=== PATIENT | female | born 1950 | race Caucasian/White ===

== ENCOUNTER 2022-12-29 07:50 | Emergency (ER) | payer MEDICARE, SELFPAY ==
[2022-12-29 07:57] VITALS: BP 149/77; PULSE 96; RESP 20; TEMP 36.4; O2SAT 97; BMI 32.3
--- NOTE | 2022-12-29 08:20 | ED.WOUNDLAC1 ---
HPI - Wound/Laceration General Chief Complaint: Wound/Laceration Stated Complaint: LEG IS BLEEDING Time Seen by Provider: 12/29/22 08:03 History of Present Illness HPI narrative: the patient scratched a scab on her right lower leg last night and the leg began to bleed. She applied a bandage and it seemed to stop but when she removed the bandage a couple of hours later, the scab came off again and bleeding resumed. They applied another bandage and came to the ED for evaluation. the patient takes aspirin daily. Related Data Home Medications Medication Instructions Recorded Confirmed aspirin 81 mg tablet,delayed 81 mg PO DAILY 12/29/22 12/29/22 release (Adult Low Dose Aspirin) empagliflozin 25 mg tablet 25 mg PO DAILY 12/29/22 12/29/22 (Jardiance) lisinopril 20 1 tab PO .every day 12/29/22 12/29/22 mg-hydrochlorothiazide 12.5 mg tablet semaglutide 1 mg/dose (4 mg/3 mL) 1 mg subcut .weekly 12/29/22 12/29/22 subcutaneous pen injector (Ozempic) simvastatin 40 mg tablet 40 mg PO DAILY 12/29/22 12/29/22 Allergies Allergy/AdvReac Type Severity Reaction Status Date / Time oxycodone Allergy Severe Verified 12/29/22 08:02 Penicillins Allergy Severe Rash Verified 12/29/22 08:01 codeine AdvReac Severe Confusion Verified 12/29/22 08:02 [facility] Social History Smoking status: Never smoker Exam Narrative Exam Narrative: Nurses notes and vital signs reviewed and patient is not hypoxic. afebrile General: Well-appearing and in no apparent distress. Skin: Warm, dry, no pallor noted. No rash. Cardiovascular: normal peripheral perfusion. Respiratory: No accessory muscle use or respiratory distress. Musculoskeletal: right lower leg with 3mm area of prior scab overlying spider veins and varicose veins. No active bleeding. Right LE with normal ROM, no calf or popliteal tenderness, no lower extremity edema/swelling Neurological: A&O x4. No truncal ataxia. Moves all extremities. Sensation intact. Psychiatric: Cooperative and interactive. Normal mood and affect. Constitutional Vital Signs, click to edit/add: Last Vital Signs Temp 97.6 F 12/29/22 07:57 Pulse 96 H 12/29/22 07:57 Resp 20 12/29/22 07:57 BP 149/77 H 12/29/22 07:57 Pulse Ox 97 12/29/22 07:57 O2 Del Method Room Air 12/29/22 07:57 Course Vital Signs Vital signs: Vital Signs Temperature 97.6 F 12/29/22 07:57 Pulse Rate 96 H 12/29/22 07:57 Respiratory Rate 20 12/29/22 07:57 Blood Pressure 149/77 H 12/29/22 07:57 Pulse Oximetry 97 12/29/22 07:57 Oxygen Delivery Method Room Air 12/29/22 07:57 Temperature 97.6 F 12/29/22 07:57 Pulse Rate 96 H 12/29/22 07:57 Respiratory Rate 20 12/29/22 07:57 Blood Pressure 149/77 H 12/29/22 07:57 Pulse Oximetry 97 12/29/22 07:57 Oxygen Delivery Method Room Air 12/29/22 07:57 MDM - Wound/Laceration MDM Narrative Medical decision making narrative: I removed the bandage and the bleeding was controlled. I cleaned the area and then applied xeroform gauze to the area of prior scab. I then covered with a dry sterile bandage. I talked to the patient and her about how to treat bleeding wounds - elevate the extremity, apply a bandage and then apply pressure to the area. I told the patient to keep the bandage in place until it starts to fall off on its own. I gave them the remainder of the xeroform and taught them how to apply it to the wound if the bleedinf recurs when the bandage comes off. Discharge Plan Discharge Chief Complaint: Wound/Laceration Clinical Impression: Abrasion Patient Disposition: Home, Self-Care Time of Disposition Decision: 08:25 Prescriptions / Home Meds: No Action Jardiance 25 mg tablet 25 mg PO DAILY lisinopril-hydrochlorothiazide 20-12.5 mg tablet 1 tab PO .every day Ozempic 1 mg/dose (4 mg/3 mL) pen injector 1 mg SUBCUT .weekly simvastatin 40 mg tablet 40 mg PO DAILY aspirin [Adult Low Dose Aspirin] 81 mg tablet,delayed release (DR/EC) 81 mg PO DAILY Instructions: Abrasion (ED) Stand Alone Forms: Portal Instructions
== END 2022-12-29 08:50 | disposition home or self-care (01) ==
PROVIDERS: Emergency Provider Emergency Medicine; PCP Family Medicine
DX: S80.811A Abrasion, right lower leg, initial encounter (principal); Z79.82 Long term (current) use of aspirin; X58.XXXA Exposure to other specified factors, initial encounter; Z79.899 Other long term (current) drug therapy
CPT/HCPCS: 99282

== ENCOUNTER 2023-02-14 13:16 | Outpatient (OUT) | payer MEDICARE, SELFPAY ==
--- NOTE | 2023-02-14 13:24 | MM_ITS ---
Patient: TAMARA JOHNSON Exam Date: 02/14/2023 : 1950 Gender:F Ordering : DR ALPHONSO BUSCH Admission #: [id number] Family : Order #: [id number] CLICK HERE TO VIEW EXAM RADIOLOGY REPORT PROCEDURE: MM TOMOSYNTHESIS SCREENING BI COMPARISON: MG MAMM SCREEN 3D CANDI CAD, 10/27/2020. MG MAMM SCREEN 3D CANDI CAD, 12/11/2021. INDICATIONS: Calculator Name NCI Breast Cancer Risk Assessment Tool 5 Year Breast Cancer Risk 3.80% Lifetime Breast Cancer Risk 10.90% Personal Breast Cancer No Personal Ovarian Cancer No Treatments None Family Cancers Mother with breast cancer at age 75. LOCATION: [facility] BREAST COMPOSITION: Scattered areas fibroglandular density. FINDINGS: DIAGNOSTIC CATEGORY 2--BENIGN FINDING. NO CHANGE FROM COMPARISON. Scattered benign-appearing nodules are present. Scattered benign-appearing calcifications are present. Scattered benign-appearing lymph nodes are present. RIGHT BREAST: No significant suspicious finding. LEFT BREAST: No significant suspicious finding. RECOMMENDATIONS: ROUTINE MAMMOGRAM AND CLINICAL EVALUATION IN 12 MONTHS. PLEASE NOTE: A NORMAL MAMMOGRAM DOES NOT EXCLUDE THE POSSIBILITY OF BREAST CANCER. A CLINICALLY SUSPICIOUS PALPABLE LUMP SHOULD BE BIOPSIED. Dictated by: Cecilio Ndiaye MD on 02/17/2023 at 09:42 Approved by: Cecilio Ndiaye MD on 02/17/2023 at 09:44
== END 2023-02-14 13:17 | disposition home or self-care (01) ==
LOC: MAMMO 13:16
PROVIDERS: PCP Family Medicine; Visit Provider Nurse Practitioner Family
DX: Z12.31 Encounter for screening mammogram for malignant neoplasm of breast (principal); Z80.3 Family history of malignant neoplasm of breast
CPT/HCPCS: 77063; 77067

== ENCOUNTER 2024-02-27 09:42 | Outpatient (OUT) | payer MEDICARE, SELFPAY ==
[2024-02-27 10:19] LABS: Estimated Average Glucose 157 mg/dL; Glycohemoglobin A1C 7.1 % (4.5-6.2)
== END 2024-02-27 09:43 | disposition home or self-care (01) ==
LOC: LAB 09:42
PROVIDERS: PCP Nurse Practitioner Family; Visit Provider Nurse Practitioner Family
DX: E11.9 Type 2 diabetes mellitus without complications (principal)
CPT/HCPCS: 36415; 83036

== ENCOUNTER 2024-09-23 09:21 | Outpatient (OUT) | payer MEDICARE, SELFPAY ==
[2024-09-23 09:53] LABS: Basophils Percent Auto 0.7 % (0.2-2.0); Eosinophils Absolute Auto 0.1 10^3/uL (0.0-0.7); Eosinophils Percent Auto 2.2 % (0.9-7.0); Hematocrit 41.6 % (36.0-48.0); Hemoglobin 13.4 g/dL (12.0-16.0); Immature Granulocytes Abs Auto 0.01 10^3/uL (0.00-0.03); Immature Granulocytes Pct Auto 0.2 % (0.0-0.5); Lymphocytes Absolute Auto 1.4 10^3/uL (1.2-3.8); Lymphocytes Percent Auto 35.2 % (20.5-60.0); Mean Corpuscular HGB Conc 32.2 g/dL (29.9-35.2); Mean Corpuscular Hemoglobin 29.8 pg (26.7-34.0); Mean Corpuscular Volume 92.4 fL (81.0-99.0); Mean Platelet Volume 9.8 fL (9.5-13.5); Monocytes Absolute Auto 0.4 10^3/uL (0.3-0.8); Monocytes Percent Auto 9.9 % (1.7-12.0); Neutrophils Absolute Auto 2.1 10^3/uL (1.4-6.5); Neutrophils Percent Auto 51.8 % (43.0-75.0); Platelet Count 228 10^3/uL (150-450); Red Cell Distribution Width 12.9 % (11.0-15.0); White Blood Count 4.1 10^3/uL (4.0-11.0)
[2024-09-23 10:32] LABS: Alanine Aminotransferase 22 U/L (14-59); Albumin Level 3.5 g/dL (3.4-5.0); Alkaline Phosphatase 78 U/L (46-116); Aspartate Amino Transferase 13 U/L (15-37); BUN Creatinine Ratio 26.6; Bilirubin Total 0.5 mg/dL (0.2-1.0); Calcium 9.3 mg/dL (8.5-10.1); Chloride 102 mmol/L (98-107); Chol HDL Ratio 2.8; Cholesterol 169 mg/dL (<=200); Estimated GFR (African America 44 (>=60 mL/min/1.73m^2); Estimated GFR (Non-African Ame 36 (>=60 mL/min/1.73m^2); Free T3 3.05 pg/mL (2.18-3.98); Globulin 3.6 g/dL; Glucose 157 mg/dL (74-106); HDL Cholesterol 61 mg/dL (40-60); Sodium 139 mmol/L (136-145); Thyroid Stimulating Hormone 0.921 uIU/mL (0.358-3.740); Total Protein 7.1 g/dL (6.4-8.2); Triglycerides 150 mg/dL (<=150)
[2024-09-23 11:05] LABS: Estimated Average Glucose 183 mg/dL
[2024-09-24 08:08] LABS: Insulin 21.4 uIU/mL (2.6-24.9)
== END 2024-09-23 09:22 | disposition home or self-care (01) ==
PROVIDERS: PCP Nurse Practitioner Family; Visit Provider Nurse Practitioner Family
DX: E55.9 Vitamin D deficiency, unspecified (principal)
CPT/HCPCS: 36415; 80053; 80061; 82306; 83036; 83525; 83540; 84436; 84443; 84481; 85025

== ENCOUNTER 2025-03-24 08:12 | Outpatient (OUT) | payer MEDICARE, SELFPAY ==
--- OUTSIDE RECORDS SUMMARY | 2025-03-24 08:23 | XMS_ITS | CCD ---
Author Organization [facility] Inform ion Partnership [facility] [facility] Care Team Providers Care Wire Welder Name Role Phone ROZINA, DR LUIS ARMANDO Sims Attending Unavailable ROZINA, DR LUIS ARMANDO Sims Consulting Unavailable ROZINA, DR LUIS ARMANDO Sims Primary Care Unavailable ROZINA, DR LUIS ARMANDO Sims Admitting Unavailable ZIEBER, DR MICHAEL Meek Consulting Unavailable MONALISA BELLAMY Attending Unavailable LUIS ARMANDO HANDY Referring Unavailable LUIS ARMANDO HANDY Primary Care Unavailable MONALISA BELLAMY Referring Unavailable LUIS ARMANDO HANDY Primary Care Unavailable Corky HENDERSON, Makenna Unavailable JR. SIMONS GEORGE C Attending Unavaila ble JR. SIMONS GEORGE C Referring Unavaila ble Unavailable Primary Care Provider Unavailabl e Luis Armando Handy DO Primary Care Provider Allergies Allergy ClassificationReported Allergen(s)Allergy TypeDate of OnsetReaction(s) Facility (1 source)Acetaminophen / oxyCODONEDrug Igbwjvc78-97-2489Htk [facility] Repository (3 sources)Codeine; Translations: [CODEINE]Drug Nnsmnkz54-84-9674ZeiPaulding County Hospital Repository (3 sources)Penicillins; Translations: [PENICILLINS]Drug allergy (disorder) 63-82-2121Ekp [facility] Repository (19 sources)Acetaminophen / oxyCODONE; Translations: [OXYCODONE-ACETAMINOPHEN] Drug Dbekhjk95-25-9075AqsNhnvob Repository (17 sources)CodeineDrug Xdttvly41-74-7228EgsHyqoui Health System (3 sources)Insulin Glargine / LixisenatideDrug Cwzigeh65-08-8941[facility] (3 sources)PenicillinsPropensity to adverse mhadipari66-78-2261MshspLWMT Healthcare (14 sources)PenicillinsPropensity to adverse reactions to pmht01-23-6047 [facility] Medications Current Medications MedicationDrug Class(es)DatesSig (Normalized)Sig (Original)Ascorbic Acid (17 sources)Vitamin Ctake 1 tablet by mouth in the morningascorbic acid (VITAMIN C) 500 mg tablet Take 1 tablet (500 mg total) by mouth in the morning. Active Ascorbic Acid (VITAMIN C PO) Take by mouth Activeaspirin 81 mg delayed release oral tablet (3 sources)Platelet Aggregation Inhibitor, Nonsteroidal Anti-inflammatory Drug aspirin 81 MG EC tablet 1 (one) time each day at the same time ActiveCalcium Citrate (3 sources)Calcium Citrate (CITRACAL PO) Take by mouth Activecholecalciferol 0.125 mg oral capsule (17 sources)Vitamin Dcholecalciferol (D3 5000) 125 MCG (5000 UT) capsule Take by mouth Activetake 1 tablet by mouth in the morningcholecalciferol, vitamin D3, 400 units tablet Take 1 tablet (400 Units total) by mouth in the morning. Active chondroitin sulfates 400 mg / glucosamine hydrochloride 500 mg oral tablet (14 sources)take 1 tablet by mouth three times dailyglucosamine-chondroitin 500- 400 mg tablet Take 1 tablet by mouth 3 (three) times a day. Activeclindamycin 300 mg oral capsule (14 sources)Lincosamide AntibacterialStart: 90-81-7464fqzk 4 capsules by mouth every hourclindamycin (CLEOCIN) 300 mg capsule TAKE 4 CAPSULES BY MOUTH 1 HOUR PRIOR TO APPOINTMENT 06/21/2022 Activeempagliflozin 25 mg oral tablet (16 sources)Sodium-Glucose Cotransporter 2 InhibitorStart: 03-22-2023 End: 22-80-3637imdc 1 tablet by mouth once daily in the morningempagliflozin (JARDIANCE) 25 mg tablet tablet Indications: Type 2 diabetes mellitus with diabetic chronic kidney disease ([facility]) Take 1 tablet (25 mg total) by mouth every morning. 90 tablet 03/19/2024 03/19/2024 Discontinued (Patient Transfer) hydroCHLOROthiazide 12.5 mg / lisinopril 20 mg oral tablet (20 sources)Thiazide Diuretic, Angiotensin Converting Enzyme InhibitorStart: 06-07-2024 End: 36-40-1715iguz 1 tablet by mouth once daily in the morninglisinopril- hydroCHLOROthiazide (PRINZIDE,ZESTORETIC) 20-12.5 mg per tablet Indications: Essential (primary) hypertension TAKE 1 TABLET BY MOUTH EVERY DAY IN THE MORNING 90 tablet 06/07/2024 06/07/2024 Discontinued (Patient Transfer)Start: 32-41-6555tatd 1 tablet by mouth in the morninglisinopril-hydroCHLOROthiazide 20-12.5 MG tablet Take 1 tablet by mouth in the morning. 12/05/2023 ActiveStart: 12-05-2023 End: 59-96-6801cpcb 1 tablet by mouth once in the morninglisinopril- hydroCHLOROthiazide (PRINZIDE,ZESTORETIC) 20-12.5 mg per tablet Indications: Essential (primary) hypertension Take 1 tablet by mouth in the morning. 90 tablet 1 12/05/2023 06/07/2024 DiscontinuedStart: 12-11-2022 End: 64-53-2971tvph 1 tablet by mouth once dailylisinopril-hydroCHLOROthiazide (PRINZIDE,ZESTORETIC) 20-12.5 mg per tablet Indications: Essential (primary) hypertension TAKE 1 TABLET BY MOUTH EVERY DAY 90 tablet 1 06/12/2023 Active insulin glargine 100 unt/ml injectable solution (14 sources)Insulin AnalogStart: 85-58-0731xioiiy 0.1 mL by subcutaneous injection once dailyinsulin glargine (LANTUS U-100 INSULIN) 100 unit/mL injection Inject 0.1 mL (10 Units total) under the skin Daily at 0300. 10 mL 3 08/06/2023 ActiveStart: 78-84-1795bernwu 10 [IU] by subcutaneous injection once dailyinsulin glargine U-300 conc (TOUJEO MAX U-300 SOLOSTAR) 300 unit/mL (3 mL) insulin pen Inject 10 Units under the skin Daily at 0300. 9 mL 1 08/05/2023 ActiveStart: 01-26-2023 End: 84-10-1163xqnlyr 10 [IU] by subcutaneous injection in the morninginsulin glargine 300 unit/mL (TOUJEO SOLOSTAR U-300 INSULIN) 300 unit/mL (1.5 mL) insulin pen Inject 10 Units under the skin in the morning. 4.5 mL 12 01/26/2023 08/05/2023 Discontinued (Patient Never Started This Medication) methylsulfonylmethane (3 sources)Methylsulfonylmethane (MSM PO) Take by mouth Active pckmbwdm-swjv-AC-calcium &mins (THERAGRAN-M) 9 mg iron-400 mcg tablet (14 sources)dzmwzyil-uxrc-MB-calcium &mins (THERAGRAN-M) 9 mg iron-400 mcg tablet Take 1 tablet by mouth inthe morning. Guuuznliqhiyvy-xggy-AV-calcium &mins (THERAGRAN-M) 9 mg iron-400 mcg tablet Take 1 tablet by mouth inthe morning. 0 ActiveOzempic, 2 MG/DOSE, 8 MG/3ML solution pen-injector (3 sources)Start: 90-56-4671Chtkfuy, 2 MG/DOSE, 8 MG/3ML solution pen-injector Inject 2 mg under the skin every 7 (seven) days 08/05/2023 Activesemaglutide (OZEMPIC) 2 mg/dose (8 mg/3 mL) pen injector (16 sources)Start: 28-41-7222kptctg 2 mg by subcutaneous injection every week semaglutide (OZEMPIC) 2 mg/dose (8 mg/3 mL) pen injector Indications: Type 2 diabetes mellitus withother diabetic kidney complication, without long-term current use of insulin ([facility]) Inject 2 mg under the skin once a week. 9 mL 3 08/05/2023 ActiveStart: 07-28-2023 End: 44-15-4923nwcmtcnhvvx (OZEMPIC) 2 mg/dose (8 mg/3 mL) pen injector INJECT 2 MG SUBCUTANEOUSLY EVERY 7 DAYS 3 mL 0 07/28/2023 08/05/2023 Discontinued (Reorder)Start: 53-67-0788hocoymxrzcb (OZEMPIC) 2 mg/dose (8 mg/3 mL) pen injector INJECT 2 MG SUBCUTANEOUSLY EVERY 7 DAYS 3 mL 0 07/28/2023 ActiveStart: 04-27-2023 End: 32-79-4218qjvnuiooaoq (OZEMPIC) 2 mg/dose (8 mg/3 mL) pen injector INJECT 2 MG SUBCUTANEOUSLY EVERY 7 DAYS 3 mL 2 04/27/2023 07/28/2023 DiscontinuedStart: 68-54-3029yjfnertzvls (OZEMPIC) 2 mg/dose (8 mg/3 mL) pen injector INJECT 2 MG SUBCUTANEOUSLY EVERY 7 DAYS 3 mL 2 04/27/2023 Activesimvastatin 40 mg oral tablet (20 sources)HMG-CoA Reductase InhibitorStart: 01-17-2023 End: 77-86-3012lpdu 1 tablet by mouth at bedtimesimvastatin (Zocor) 40 MG tablet Take 40 mg by mouth at bedtime 01/08/2024 Activeubidecarenone 50 mg oral capsule (14 sources)take 1 capsule by mouth once in the morningcoenzyme Q10 50 mg capsule Take 1 capsule (50 mg total) by mouth in the morning. Active Completed/Discontinued Medications MedicationDrug Class(es)DatesSig (Normalized)Sig (Original)ferrous sulfate 325 mg oral tablet (4 sources) End: 77-52-9913pbob 1 tablet by mouth once daily at breakfastferrous sulfate 325 (65 FE) mg tablet Take 1 tablet (325 mg total) by mouth daily with breakfast. 0 08/05/2023 Discontinued (Therapy completed) Problems Active Problems Problem ClassificationProblemDateDocumented DateEpisodic/ChronicChronic kidney disease (12 sources)Chronic kidney disease stage 3A ; Translations: [Stage 3a chronic kidney disease]Onset: 397999-38-2425WqoblhbZtnsoji kidney disease (2 sources)Chronic kidney disease; Translations: [Chronic kidney disease, stage 3a]Onset: 62-64-7454Eericdlz mellitus with complications (20 sources)Type 2 diabetes mellitus with other diabetic kidney complication; Translations: [Renal disorder dueto type 2 diabetes mellitus]Onset: 07-24-2022 77-65-0090XqsjydhFifvzrid mellitus without complication (1 source)Diabetes mellitusOnset: 96-82-5018SrnbzrzDfvbfilga of lipid metabolism (17 sources)Mixed hyperlipidemia; Translations: [Mixed hyperlipidemia]Onset: 259586-85-0167DudueycBqekcjebm hypertension (17 sources)Essential hypertension; Translations: [Essential (primary) hypertension]Onset: 740748-75-5603WztjuqtBqnow connective tissue disease (2 sources)History of total replacement of bilateral hip joints; Translations: [Presence of artificial hip joint, bilateral]47-38-0398LrplczcPopxi nutritional; endocrine; and metabolic disorders (1 source)Other obesity due to excess calories; Translations: [Other obesity due to excess calories]Onset: 56-05-5166MjzqcejIsbac nutritional; endocrine; and metabolic disorders (1 source)Body mass index (BMI) 31.0-31.9, adult; Translations: [Body mass index (BMI) 31.0-31.9, adult]Onset: 39-09-1243DentrcyPbkrd nutritional; endocrine; and metabolic disorders (1 source)Obesity caused by energy imbalance; Translations: [Other obesity due to excess calories]22-59-3933GlsdzrlFwodi screening for suspected conditions (not mental disorders or infectious disease) (4 sources)Encounter for screening mammogram for malignant neoplasm of breast; Translations: [ENC SCR MAMMO MALIG NEOPLASM BREAST]Onset: 78-44-7094Tzhcponf Peripheral and visceral atherosclerosis (13 sources)Peripheral vascular disease, unspecified; Translations: [Peripheral vascular disease]Onset: 943522-83-1984AawglujKiqvhpdx codes; unclassified (1 source)Family history of malignant neoplasm of breast; Translations: [FAMILY HX MALIG NEOPLASM OF BREAST]Onset: 77-98-1530Jwddaenf Past or Other Problems Problem ClassificationProblemDateDocumented DateEpisodic/ChronicMood disorders (14 sources)Mood disordersOnset: 01-24-2023 Resolved: 337178-12-5883Tbrzd non-traumatic joint disorders (18 sources)Hip pain; Translations: [Pain in left hip]Onset: 01-12-2018 50-25-4444EfhuchyrCvxmpmalrslj (11 sources)Onset: 381321-17-2654 Results Test NameValueInterpretationReference RangeFacilityNo Panel Informationon 23-62-4526Xprdnbrjg Study observation (narrative)[facility] Hip - left 3 Viewson 57-73-1986Yrsevsm Result: AP and lateral of left hip showed acceptable position and alignment of left total hip arthroplasty. There was no evidence of loosening of the acetabular cup or femoral stem. Femoral head was well centered in the acetabular liner without evidence of asymmetric or accelerated wear. There was no gross evidence of fracture and/or dislocation. Impression: Unremarkable left total hip arthroplasty. [facility] Viewson 27-21-0698Vwdlplw Result: AP and lateral of right hip showed acceptable position and alignment of right total hip arthroplasty. There was no evidence of loosening of the acetabular cup or femoral stem. Femoral head was well centered in the acetabular liner without evidence of asymmetric or accelerated wear. There was no gross evidence of fracture and/or dislocation. Impression: Unremarkable right total hip arthroplasty. [facility] AND AUTO DIFFon 03-57-7671IECETGND BASOPHIL0.0 X10E9/LNormal0.0-0.2ProMedKettering Health Washington TownshipComment on above:Performed By: #### VIRI, SURINDER, 51941-3, 58054-9, 2777-1, 3084-1, 3016-3, 2731-8, 51444-8 #### [facility] ([id number]) [address], [address] [place], [place] [address]QORDBOMO NEUTROPHIL4.3 X10E9/LNormal1.5-6.6ProWooster Community HospitalComment on above:Performed By: #### TAMMYA, CMP, 49621-8, 10665-7, 2777-1, 3084-1, 3016-3, 2731-8, 13037-1 #### [facility] ([id number]) [address], [address] [place], [place] [address]Gzaaxlwtv/100 WBC (Bld)0.5 %NormalProWooster Community Hospital Comment on above:Performed By: #### CBCA, CMP, 47341-2, 99911-2, 2777-1, 3084-1, 3016-3, 2731-8, 14159-9 #### [facility] ([id number]) [address], [address] [place], [place] [address]Depyqagljkk (Bld) [#/Vol]0.1 10*3/uLNormal0.0-0.4ProWooster Community HospitalComment on above:Performed By: #### CBCA, CMP, 86549-6, 42229-6, 2777-1, 3084-1, 3016-3, 2731-8, 56166-5 #### [facility] ([id number]) [address], [address] [place], [place] [address]Urwatydzdhp/100 WBC (Bld)1.9 %NormalProWooster Community Hospital Comment on above:Performed By: #### CBCA, CMP, 97606-8, 54837-8, 2777-1, 3084-1, 3016-3, 2731-8, 53459-9 #### [facility] ([id number]) [address], [address] [place], [place] [address]Svtjkdyyazg distribution width (RBC) [Ratio]14.9 %Normal 11.5-15.0ProWooster Community HospitalComment on above:Performed By: #### CBCA, CMP, 56444-7, 02451-2, 2777-1, 3084-1, 3016-3, 2731-8, 43587-3 #### [facility] ([id number]) [address], [address] [place], [place] [address]Hprjckzjmm (Bld) [Volume fraction]40.4 %Miaieq14-06FgtDiydjbWooster Community HospitalComment on above:Performed By: #### CBCA, CMP, 24676-6, 09654-3, 2777-1, 3084-1, 3016-3, 2731-8, 62126-1 #### [facility] ([id number]) [address], [address] [place], [place] [address]Laoyprwlro (Bld) [Mass/Vol]13.5 g/iRFaquey75.7-15.5ProMedica Community Memorial HospitalComment on above:Performed By: #### CBCA, CMP, 79276-1, 35394-5, 2777-1, 3084-1, 3016-3, 2731-8, 96397-9 #### [facility] ([id number]) [address], [address] [place], [place] [address]Gbqzxxuwcjc (Bld) [#/Vol]1.3 10*3/uLNormal1.0-3.5ProMedica Community Memorial HospitalComment on above:Performed By: #### CBCA, CMP, 54764-4, 10532-1, 2777-1, 3084-1, 3016-3, 2731-8, 01031-6 #### [facility] ([id number]) [address], [address] [place], [place] [address]Cgdiwittnfl/100 WBC (Bld)21.6 %NormalProWayne Hospital Hospital Comment on above:Performed By: #### CBCA, CMP, 79527-1, 69882-3, 2777-1, 3084-1, 3016-3, 2731-8, 41768-4 #### [facility] ([id number]) [address], [address] [place], [place] [address]HID (RBC) [Entitic mass]28.9 jbThpbyd26-29BubKpfebl [facility] HospitalComment on above:Performed By: #### CBCA, CMP, 94771-6, 83104-0, 2777-1, 3084-1, 3016-3, 2731-8, 18703-1 #### [facility] ([id number]) [address], [address] [place], [place] [address]MSKI (RBC) [Mass/Vol]33.4 g/oUXkldmw90-47TbuHjigeh [facility] HospitalComment on above:Performed By: #### CBCA, CMP, 23505-6, 91842-4, 2777-1, 3084-1, 3016-3, 2731-8, 26732-1 #### [facility] ([id number]) [address], [address] [place], [place] [address]PSN (RBC) [Entitic vol]87 fDXnikrm75-336WoxOkxvfc [facility] HospitalComment on above:Performed By: #### CBCA, CMP, 39575-2, 53135-2, 2777-1, 3084-1, 3016-3, 2731-8, 03244-6 #### [facility] ([id number]) [address], [address] [place], [place] [address]Slkdoguwm (Bld) [#/Vol]0.4 10*3/uLNormal0-0.9ProMedica Community Memorial HospitalComment on above:Performed By: #### CBCA, CMP, 88146-2, 64532-7, 2777-1, 3084-1, 3016-3, 2731-8, 67555-6 #### [facility] ([id number]) [address], [address] [place], [place] [address]Fzyzwlyex/100 WBC (Bld)6.9 %NormalCleveland Clinic Fairview Hospital Comment on above:Performed By: #### CBCA, CMP, 98943-9, 83348-3, 2777-1, 3084-1, 3016-3, 2731-8, 45777-4 #### [facility] ([id number]) [address], [address] [place], [place] [address]Fhjbosibwjk/100 WBC (Bld)69.1 %NormalCleveland Clinic Fairview Hospital Comment on above:Performed By: #### CBCA, CMP, 19016-0, 39885-5, 2777-1, 3084-1, 3016-3, 2731-8, 40020-9 #### [facility] ([id number]) [address], [address] [place], [place] [address]Slyktime mean volume (Bld) [Entitic vol]8.3 fLNormal7-12 [facility] Community Memorial HospitalComment on above:Performed By: #### CBCA, CMP, 91376-6, 10045-6, 2777-1, 3084-1, 3016-3, 2731-8, 73627-5 #### [facility] ([id number]) [address], [address] [place], [place] [address]Uxfsnizrr (Bld) [#/Vol]335 10*3/yCFmhtyr715-179IlvXhqytp [facility] HospitalComment on above:Performed By: #### CBCA, CMP, 09787-6, 65319-4, 2777-1, 3084-1, 3016-3, 2731-8, 20509-2 #### [facility] ([id number]) [address], [address] [place], [place] [address]FOR COUNT4.67 X10E12/LNormal3.80-5.20[facility] Comment on above:Performed By: #### CBCA, CMP, 93638-5, 16962-8, 2777-1, 3084-1, 3016-3, 2731-8, 74698-2 #### [facility] ([id number]) [address], [address] [place], [place] [address]JEW (Bld) [#/Vol]6.2 10*3/uLNormal4.0-11.0C[facility] Clinic Fair[facility] HospitalComment on above:Performed By: #### CBCA, CMP, 10297-7, 11922-3, 2777-1, 3084-1, 3016-3, 2731-8, 19395-4 #### [facility] ([id number]) [address], [address] [place], [place] [address]JIC auto differentialon 16-24-3054Rvruzgfvb (Bld) [#/Vol]0.0 10*3/uLProMedica Health SystemBasophils/100 WBC (Bld)0.5 %ProMedica Health SystemEosinophils (Bld) [#/Vol]0.1 10*3/uLProMedica Health SystemEosinophils/100 WBC (Bld)1.9 %ProMedica Health SystemErythrocyte distribution width (RBC) [Ratio]14.9 %11.5 - 15.0 %ProMedica Health SystemHematocrit (Bld) [Volume fraction]40.4 %35 - 47 %ProMedica Health SystemHemoglobin (Bld) [Mass/Vol]13.5 g/dL11.7 - 15.5 g/dLPaulding County HospitalLymphocytes (Bld) [#/Vol]1.3 10*3/uL [facility] County HospitalLymphocytes/100 WBC (Bld)21.6 %[facility] HospitalH (RBC) [Entitic mass]28.9 pg27 - 34 pgPTogus VA Medical CenterMCHC (RBC) [Mass/Vol]33.4 g/dL32 - 36 g/dLPaulding County HospitalMCV (RBC) [Entitic vol]87 fL80 - 100 [facility] HospitalMonocytes (Bld) [#/Vol]0.4 10*3/uLPaulding County HospitalMonocytes/100 WBC (Bld)6.9 %[facility] County HospitalNeutrophils (Bld) [#/Vol]4.3 10*3/uLPaulding County HospitalNeutrophils/100 WBC (Bld)69.1 % [facility] HospitalPlatelet mean volume (Bld) [Entitic vol]8.3 fL7 - 12 fL [facility] County HospitalPlatelets (Bld) [#/Vol]335 10*3/uLPaulding County Hospital RBC (Bld) [#/Vol]4.67 10*6/[facility] CenterWBC corrected for nucl RBC Auto (Bld) [#/Vol]6.2PUPMC Western Psychiatric HospitalCOMPREHENSIVE METABOLIC PANELon 24-59-4093Ksqlawl [Mass/Vol]4.4 g/dLNormal3.2-5.3PParkview Health Montpelier HospitalComment on above:Performed By: #### SURINDER MEREDITH, 30899-5, 76771-6, 2777-1, 3084-1, 3016-3, 2731-8, 91458-8 #### [facility] ([id number]) [address] [place], [place] [address]YYW [Catalytic activity/Vol]82 U/DCvfnro74-512FzwIcnedyCleveland Clinic Fairview HospitalComment on above:Performed By: #### CBCA, CMP, 09331-8, 87807-4, 2777-1, 3084-1, 3016-3, 2731-8, 41166-5 #### [facility] ([id number]) [address], [address] [place], [place] [address]SKE [Catalytic activity/Vol]14 U/LNormal0-31ProMedKettering Health Miamisburg HospitalComment on above:Performed By: #### VIRI, CMP, 97927-8, 38592-4, 2777-1, 3084-1, 3016-3, 2731-8, 61025-7 #### [facility] ([id number]) [address] [place], [place] [address]Tfxzr gap [Moles/Vol]12 mmol/LNormal5-15Pro[facility] HospitalComment on above:Performed By: #### VIRI, SURINDER, 86046-8, 14327-3, 2777-1, 3084-1, 3016-3, 2731-8, 50890-0 #### [facility] ([id number]) [address] [place], [place] [address]LLA [Catalytic activity/Vol]17 U/LNormal0-41ProWayne Hospital HospitalComment on above:Performed By: #### VIRI, CMP, 96521-8, 26755-6, 2777-1, 3084-1, 3016-3, 2731-8, 14203-4 #### [facility] ([id number]) [address], [address] [place], [place] [address]Nclzansuv [Mass/Vol]0.5 mg/dLNormal0.3-1.2ProMedKettering Health Miamisburg HospitalComment on above:Performed By: #### TAMMYA, CMP, 50787-3, 78703-5, 2777-1, 3084-1, 3016-3, 2731-8, 90029-2 #### [facility] ([id number]) [address], [address] [place], [place] [address]Ahzmfvd [Mass/Vol]10.2 mg/dLNormal8.5-10.5PParkview Health Montpelier HospitalComment on above:Performed By: #### SURINDER MEREDITH, 68394-5, 53306-8, 2777-1, 3084-1, 3016-3, 2731-8, 91653-6 #### [facility] ([id number]) [address], [address] [place], [place] [address]Lidvwpeq [Moles/Vol]100 mmol/PQufssu84-785AtbDtpfur [place] HospitalComment on above:Performed By: #### SURINDER MEREDITH, 85829-2, 82619-5, 2777-1, 3084-1, 3016-3, 2731-8, 18594-6 #### [facility] ([id number]) [address], [address] [place], [place] [address]PT4 [Moles/Vol]30 mmol/JNqtnem20-15PcyKtbmlnParkview Health Montpelier Hospital Comment on above:Performed By: #### SURINDER MEREDITH, 45644-3, 93113-8, 2777-1, 3084-1, 3016-3, 2731-8, 28899-8 #### [facility] ([id number]) [address], [address] [place], [place] [address]Oifedseqhb [Mass/Vol]1.20 mg/dLHigh0.40-1.00ProWooster Community HospitalComment on above:Result Comment: METHOD TRACEABLE TO IDMS STANDARD Performed By: #### VIRI, SURINDER, 70376-1, 94067-4, 2777-1, 3084-1, 3016-3, 2731-8, 28736-6 #### [facility] ([id number]) [address], [address] [place], [place] [address]PYV/1.73 sq M.predicted among non-blacks MDRD (S/P/Bld) [Vol rate/Area]49 mL/min/{1.73_m2}Low>59ProWooster Community HospitalComment on above: Result Comment: Reported eGFR is based on the CKD-EPI 2020 equation that does not use a race coefficient.Performed By: #### SURINDER MEREDITH, 30107-6, 37168-7, 2777- 1, 3084-1, 3016-3, 2731-8, 53404-3 #### [facility] ([id number]) [address], [address] [place], [place] [address]Kpggxos [Mass/Vol]176 mg/gURnts89-53AouObkiavCleveland Clinic Fairview Hospital Comment on above:Performed By: #### SURINDER MEREDITH, 13862-7, 30958-5, 2777-1, 3084-1, 3016-3, 2731-8, 69858-1 #### [facility] ([id number]) [address], [address] [place], [place] [address]Crsvqbkpj [Moles/Vol]4.0 mmol/LNormal3.5-5.0ProWooster Community HospitalComment on above:Performed By: #### SURINDER MEREDITH, 18922-9, 83688-4, 7-1, 3084-1, 3016-3, 2731-8, 81213-7 #### [facility] ([id number]) [address], [address] [place], [place] [address]Ucxzxvh [Mass/Vol]7.8 g/dLNormal6.0-8.0[facility] Comment on above:Performed By: #### SURINDER MEREDITH, 72346-6, 45375-8, 2777-1, 3084-1, 3016-3, 2731-8, 52194-7 #### [facility] ([id number]) [address], [address] [place], [place] [address]Owmqht [Moles/Vol]142 mmol/KEddmly715-943DszEsvrju Toledo HospitalComment on above:Performed By: #### VIRI, SURINDER, 44957-2, 73410-0, 2777-1, 3084-1, 3016-3, 2731-8, 94817-3 #### [facility] ([id number]) [address] [place], [place] [address]Htkd nitrogen [Mass/Vol]33 mg/dLHigh5-27C[facility] Fairview HospitalComment on above:Performed By: #### CBCA, CMP, 73343-4, 69112-5, 2777-1, 3084-1, 3016-3, 2731-8, 55258-9 #### [facility] ([id number]) [address], [address] [place], [place] [address]Aqmbwrxeybhoj metabolic panelon 06-40-7268Stwyjun [Mass/Vol]4.4 g/dL3.2 - 5.3 g/dLProCleveland Clinic Euclid Hospital SystemALP [Catalytic activity/Vol]82 U/L39 - 130 U/[facility] SystemALT No additional P-5'-P [Catalytic activity/Vol] 14 U/L0 - 31 U/[facility] SystemAnion gap [Moles/Vol]12 mmol/L5 - 15 mmol/[facility] SystemAST [Catalytic activity/Vol]17 U/L0 - 41 U/L [facility] HospitalBilirubin [Mass/Vol]0.5 mg/dL0.3 - 1.2 mg/dLACMC Healthcare System SystemCalcium [Mass/Vol]10.2 mg/dL8.5 - 10.5 mg/dLACMC Healthcare System System Chloride [Moles/Vol]100 mmol/L98 - 109 mmol/[facility] SystemCO2 [Moles/Vol]30 mmol/L22 - 32 mmol/[facility] SystemCreatinine [Mass/Vol] 1.20 mg/dLHigh0.40 - 1.00 mg/dLPaulding County HospitalComment on above:METHOD TRACEABLE TO [facility] STANDARDeGFR (CKD-EPI)non-race xknnucxul18MwvCarilion New River Valley Medical CenterComment on above: Reported eGFR is based on the CKD-EPI 2020 equation that does not use a race coefficient. Glucose [Mass/Vol]176 mg/mWYmiz20 - 99 mg/dLProZanesville City HospitalPotassium [Moles/Vol]4.0 mmol/L3.5 - 5.0 mmol/LProMedwalker county hospital Health SystemProtein [Mass/Vol] 7.8 g/dL6.0 - 8.0 g/dLProCleveland Clinic Euclid Hospital SystemSodium [Moles/Vol]142 mmol/L134 - 146 mmol/LProMedCleveland Clinic Euclid Hospital SystemUrea nitrogen [Mass/Vol]33 mg/dLHigh5 - 27 mg/dLPaulding County HospitalHGB A1C (GLYCO-HGB)on 08-99-2997Udxltjh [Mass/Vol] 200 mg/dLNormalCleveland Clinic Fairview HospitalComment on above:Performed By: #### SURINDER MEREDITH, 71899-5, 98577-4, 2777-1, 3084-1, 3016-3, 2731-8, 88545-9 #### [facility] ([id number]) [address], [address] [place], [place] [address]RzC5v (Bld) [Mass fraction]8.6 %High4.4-5.6C[facility] Clinic Fairview HospitalComment on above:Result Comment: NOTE ADA Guidelines Result HgbA1c Normal : less than 5.7 % Prediabetes : 5.7 % to 6.4 % Diabetes : > 6.4 % Use with caution in patients with abnormal hemoglobin variants as the half-life of red blood cells and in vivo glycation rates are affected.Performed By: #### SURINDER MEREDITH, 55170-3, 39789-7, 7-1, 3084-1, 3016-3, 2731-8, 91052-6 #### [facility] ([id number]) [address], [address] [place], [place] [address]Vxrpkromri A1con 88-07-2685Ltjnzuv glucose Estimated from glycated hemoglobin (Bld) [Mass/Vol]200 mg/dLPaulding County HospitalHbA1c (Bld) [Mass fraction]8.6 %High4.4 - 5.6 %Paul[facility] HospitalComment on above:NOTE ADA Guidelines Result HgbA1c Normal : less than 5.7 % Prediabetes : 5.7 % to 6.4 % Diabetes : > 6.4 % Use with caution in patients with abnormal hemoglobin variants as the half-life of red blood cells and in vivo glycation rates are affected. Interpretation and review of laboratory resultsAbnormalDepartment of Veterans Affairs Medical Center-Wilkes BarreLipid 1996 panelon 13-18-7746Sseykskwgqt [Mass/Vol]169 mg/dL150 - 200 mg/dLPaulding County HospitalCholesterol in HDL [Mass/Vol]58 mg/dL 39 - PINF mg/dLPaulding County HospitalComment on above: HDL <40 mg/dL - High Risk HDL > or = 40mg/dL- Desirable HDL >60 mg/dL - Negative Risk Cholesterol in LDL [Mass/Vol]74 mg/dLNINF - 130 mg/dLPaulding County Hospital Comment on above: LDL <100 mg/dL - Desirable LDL >160 mg/dL - High Risk Cholesterol in VLDL [Mass/Vol]37 mg/dLHigh0 - 30 mg/dLPaulding County Hospital Cholesterol.total/Cholesterol in HDL [Mass ratio]2.9 {ratio}1.0 - 5.0Paulding County HospitalTriglyceride [Mass/Vol]184 mg/iETqnt94 - 150 mg/dLPaulding County HospitalCholesterol [Mass/Vol]169 mg/rGUyimpx741-894JhiEcaxgwCleveland Clinic Fairview Hospital Comment on above:Performed By: #### CBCA, CMP, 06609-6, 68698-4, 4977-1, 3084-1, 9156-3, 3981-8, 11890-3 #### [facility] ([id number]) [address], [address] [place], [place] [address]Eokpeakkiro in HDL [Mass/Vol]58 mg/dLNormal>39ProWooster Community HospitalComment on above:Result Comment: HDL <40 mg/dL - High Risk HDL > or = 40mg/dL- Desirable HDL >60 mg/dL - Negative Risk Performed By: #### VIRI, CMP, 97481-6, 88201-9, 2777-1, 3084-1, 3016-3, 2731-8, 32812-6 #### [facility] ([id number]) [address], [address] [place], [place] [address]Ylgwluthbhb in LDL [Mass/Vol]74 mg/dLNormal<130ProWooster Community HospitalComment on above:Result Comment: LDL <100 mg/dL - Desirable LDL >160 mg/dL - High Risk Performed By: #### VIRI, CMP, 75462-3, 06032-4, 2777-1, 3084-1, 3016-3, 2731-8, 94876-5 #### [facility] ([id number]) [address], [address] [place], [place] [address]Waegrjxgfkx in VLDL [Mass/Vol]37 mg/dLHigh0-30ProWooster Community HospitalComment on above:Performed By: #### VIRI, CMP, 09419-2, 72926-7, 2777-1, 3084-1, 3016-3, 2731-8, 90037-6 #### [facility] ([id number]) [address], [address] [place], [place] [address]ITNWRNIEIFG:HDL2.5Vynjss7.0-5.0C[facility] Clinic Fairview HospitalComment on above:Performed By: #### VIRI, SURINDER, 72930-6, 79417-1, 2777-1, 3084-1, 3016-3, 2731-8, 13810-3 #### [facility] ([id number]) [address], [address] [place], [place] [address]Wjzwhhofauae [Mass/Vol]184 mg/vTCuhj82-225HmoCgdediWooster Community HospitalComment on above:Performed By: #### VIRI, SURINDER, 27865-6, 57948-5, 2777-1, 3084-1, 3016-3, 2731-8, 57165-2 #### [facility] ([id number]) [address], [address] [place], [place] [address]PMGNYJVTPty 35-40-7305Xctaxpnbc [Mass/Vol]2.1 mg/dLNormal1.8-2.6 [facility] HospitalComment on above:Performed By: #### VIRI, SURINDER, 32671-0, 87351-0, 2777-1, 3084-1, 3016-3, 2731-8, 83963-1 #### [facility] ([id number]) [address], [address] [place], [place] [address]JHKSNRKLYQEN - ALBUMIN:CREATININE URINE RATIOon 08-05-2023 ALB/CREAT RATIO8.4 mg/g creatNormal0.0-30.0ProWooster Community HospitalComment on above:Performed By: #### VIRI, SURINDER, 91908-9, 13631-6, 2777-1, 3084-1, 3016-3, 2731-8, 50514-6 #### [facility] ([id number]) [address], [address] [place], [place] [address]Bloxuij DL <= 20 mg/L (U) [Mass/Vol]1.0 mg/dLNormal0.0-1.9 [facility] HospitalComment on above:Performed By: #### SURINDER MEREDITH, 00414-6, 87678-7, 2777-1, 3084-1, 3016-3, 2731-8, 51911-1 #### [facility] ([id number]) [address], [address] [place], [place] [address]ESMAX MTFWV808.60 mg/dLNormalCleveland Clinic Fairview HospitalComment on above:Performed By: #### VIRI, SURINDER, 91360-1, 62694-9, 7-1, 3084-1, 3016-3, 2731-8, 10972-0 #### [facility] ([id number]) [address], [address] [place], [place] [address]Cqhdeioppmj 57-83-8274Xoebawxbd [Mass/Vol]2.1 mg/dL1.8 - 2.6 mg/dLPaulding County HospitalMicroalbumin - Albumin: Creatinine Urine Ratioon 55-52-0173Zlqhqcx DL <= 20 mg/L (U) [Mass/Vol]1.0 mg/dL0.0 - 1.9 mg/dLPaulding County HospitalAlbumin/Creatinine DL <= 1.0 mg/L (U) [Ratio]8.4Paulding County HospitalCreatinine (U) [Mass/Vol]118.60 mg/dLKindred HealthcareNo Panel Informationon 45-06-9081Glfusecqknskhn and review of laboratory resultsAbnoWellSpan York Hospital PHOSPHORUSon 78-02-2323Hhjheumdn [Mass/Vol]4.4 mg/dLNormal2.4-4.9C[facility]view HospitalComment on above:Performed By: #### SURINDER MEREDITH, 82262-5, 09409-1, 2777-1, 3084-1, 3016-3, 2731-8, 73704-0 #### [facility] ([id number]) [facility], [address] [place], [place] [address]Dtwqytxbjd.intact [Mass/Vol]on 22-45-5646MkkOdqpauTogus VA Medical Center PTH PLADDK00 pg/xIZjltlr81-74LyyDnhocn Toledo HospitalComment on above:Performed By: #### SURINDER MEREDITH, 01299-8, 21187-2, 2777-1, 3084-1, 3016-3, 2731-8, 54091-4 #### [facility] ([id number]) [address], [address] [place], [place] [address]Fqhbacohvtz Hormone, intacton 88-68-1779Psddyihggs.intact [Mass/Vol]25 pg/mL12 - 88 pg/mLPaulding County HospitalPhosphoruson 08-05-2023 Phosphate [Mass/Vol]4.4 mg/dL2.4 - 4.9 mg/dLPaulding County HospitalTSHon 58-08-4817WNL Qn1.06 m[IU]/LProMedNewark HospitalTSH Qnon 88-69-2105EecBofdckTogus VA Medical CenterTSH1.06 uIU/mLNormal0.49-4.67ProWooster Community HospitalComment on above:Performed By: #### SURINDER MEREDITH, 71208-2, 88179-4, 2777-1, 3084-1, 3016-3, 2731-8, 89187-4 #### [facility] ([id number]) [address], [address] [place], [place] [address]COMR ACIDon 26-51-4901Ofsqk [Mass/Vol]6.4 mg/dLNormal2.6-7.2 [facility] HospitalComment on above:Performed By: #### SURINDER MEREDITH, 47458-8, 52359-6, 2777-1, 3084-1, 3016-3, 2731-8, 50055-1 #### [facility] ([id number]) [address], [address] [place], [place] [address]Vrhp acidon 16-36-2407Tvdel [Mass/Vol]6.4 mg/dL2.6 - 7.2 mg/dL [facility] County HospitalVitamin D 25 hydroxyon 21-34-4542Ftvvzch D+Metabolites [Mass/Vol]61.3 ng/mL30 - 100 ng/mLPaulding County HospitalComment on above: Vitamin D status 25 [place] Vitamin D Deficiency <20 ng/mL Insufficiency 20-29 ng/mL Sufficiency 30-100 ng/mL Toxicity >100 ng/mL NOTE: A pediatric reference range has not been established by the tower equipment repairer of this kit. The [place] [employer] recommends a Vitamin D level of = or >20ng/mL in infants and children. Vitamin D+Metabolites [Mass/Vol]on 18-68-9254ZfvMraqdxTogus VA Medical CenterVITAMIN D 25 HYD TOT61.3 ng/mZUwyaqe85-870SzkWhenxf [place]edo HospitalComment on above:Result Comment: Vitamin D status 25 [place] Vitamin D Deficiency <20 ng/mL Insufficiency 20-29 ng/mL Sufficiency 30-100 ng/mL Toxicity >100 ng/mL NOTE: A pediatric reference range has not been established by the tower equipment repairer of this kit. The [place] [employer] recommends a Vitamin D level of = or >20ng/mL in infants and children.Performed By: #### CBCA, [facility], 18602-2, 36406-5, 2777-1, 3084-1, 3016-3, 2731-8, 77647-7 #### [facility] ([id number]) [address], [address] [place], [place] [address]AP MAMM SCREEN 3D CANDI CADon 51-31-7340PS MAMM SCREEN 3D CANDI CAD Patient: TAMARA ROLON Exam Date: 12/11/2021 : 1950 Gender:F Ordering : DR LUIS ARMANDO [place] Admission #: [id number] Family : Order #: [id number] CLICK HERE TO VIEW EXAM RADIOLOGY REPORT PROCEDURE: MAMMOGRAM SCREENING 3D BILATERAL CAD COMPARISON: MG MAMM SCREEN 3D CANDI CAD, 10/27/2020. MG MAMM SCREEN CANDI W CAD, 10/18/2019. INDICATIONS: Screening mammography Calculator Name NCI Breast Cancer Risk Assessment Tool 5 Year Breast Cancer Risk 3.80% Lifetime Breast Cancer Risk 11.40% Personal Breast Cancer No Personal Ovarian Cancer No Treatments None Family Cancers Mother with breast cancer at age 75. LOCATION: [facility] BREAST COMPOSITION: Scattered areas fibroglandular density. FINDINGS: DIAGNOSTIC CATEGORY 2--BENIGN FINDING: RIGHT BREAST: No significant suspicious finding. Scattered benign-appearing calcifications are present. Scattered benign-appearing nodules are present. No significant change has occurred. LEFT BREAST: No significant suspicious finding. Scattered benign-appearing calcifications are present. Scattered benign-appearing nodules are present. No significant change has occurred. RECOMMENDATIONS: ROUTINE MAMMOGRAM AND CLINICAL EVALUATION IN 12 MONTHS. PLEASE NOTE: A NORMAL MAMMOGRAM DOES NOT EXCLUDE THE POSSIBILITY OF BREAST CANCER. A CLINICALLY SUSPICIOUS PALPABLE LUMP SHOULD BE BIOPSIED. Dictated by: Michael Apple M.D. on 12/12/2021 at 09:01 Approved by: Michael Apple M.D. on 12/12/2021 at 09:06[facility] HospitalCOMPREHENSIVE METABOLIC PANELon 67-40-0042Aloxfzn [Mass/Vol]4.2 g/dL Normal3.6-5.1Quest DiagnosticsComment on above:Performed By: #### 08602, 2707 #### [facility] [address], [address] [place], [place] [address] [employer] Supervisor: Serg Rose MDAlbumin/Globulin [Mass ratio]1.4 {ratio}Normal 1.0-2.5Quest DiagnosticsComment on above:Performed By: #### 21380, 8631 #### [facility] [address], [address] [place], [place] [address] [employer] Supervisor: Serg Rose MDALP [Catalytic activity/Vol]65 U/PXyhqnb50-821 Quest DiagnosticsComment on above:Performed By: #### 00878, 8529 #### [facility] [address], [address] [place], [place] [address] [employer] Supervisor: Serg Rose MDALT [Catalytic activity/Vol]15 U/LNormal6-29 Quest DiagnosticsComment on above:Performed By: #### 56949, 6517 #### [facility] [place] [address] [employer] Supervisor: Serg Rose MDAST [Catalytic activity/Vol]14 U/MTpythq53-06 Quest DiagnosticsComment on above:Performed By: #### 77619, 6517 #### [facility] [place] [address] [employer] Supervisor: Serg Rose MDBilirubin [Mass/Vol]0.5 mg/dLNormal0.2-1.2 Quest DiagnosticsComment on above:Performed By: #### 54042, 6517 #### [facility] [place] [address] [employer] Supervisor: Serg Rose MDCalcium [Mass/Vol]9.4 mg/dLNormal8.6-10.4Quest DiagnosticsComment on above:Performed By: #### 88816, 6517 #### [facility] [place] [address] [employer] Supervisor: Serg Rose MDChloride [Moles/Vol]103 mmol/QCgbpdg09-706 Quest DiagnosticsComment on above:Performed By: #### 35963, 6517 #### [facility] [place] [address] [employer] Supervisor: Serg Rose MDCO2 [Moles/Vol]31 mmol/XVofkqc21-27Qjkrw DiagnosticsComment on above:Performed By: #### 74067, 6517 #### [facility] [place] [address] [employer] Supervisor: Serg Rose MDCreatinine [Mass/Vol]1.14 mg/dLHigh0.50-1.05 Quest DiagnosticsComment on above:Performed By: #### 77297, 6517 #### [facility] [place] [address] [employer] Supervisor: Serg Rose MDGFR/1.73 sq M.predicted among non-blacks MDRD (S/P/Bld) [Vol rate/Area]52 mL/min/{1.73_m2}Low> OR = 60Quest DiagnosticsComment on above:Result Comment: The eGFR is based on the CKD-EPI 2020 equation. To calculate the new eGFR from a previous Creatinine or Cystatin C result, go to https://www.kidney.org/professionals/ kdoqi/gfr%5FcalculatorPerformed By: #### 85935, 6517 #### [facility] [place] [address] [employer] Supervisor: Serg Rose MDGlobulin (S) [Mass/Vol]2.9 g/dLNormal1.9-3.7 Quest DiagnosticsComment on above:Performed By: #### 83624, 6517 #### [facility] [place] [address] [employer] Supervisor: Serg Rose MDGlucose [Mass/Vol]154 mg/oDKpab74-45Fjvqj DiagnosticsComment on above:Result Comment: Fasting reference interval For someone without known diabetes, a glucose value >125 mg/dL indicates that they may have diabetes and this should be confirmed with a follow-up test.Performed By: #### 86417, 6517 #### [facility] [place] [address] [employer] Supervisor: Serg Rose MDPotassium [Moles/Vol]4.7 mmol/LNormal3.5-5.3 Quest DiagnosticsComment on above:Performed By: #### 71447, 6517 #### [facility] [place] [address] [employer] Supervisor: Serg Rose MDProtein [Mass/Vol]7.1 g/dLNormal6.1-8.1Quest DiagnosticsComment on above:Performed By: #### 91618, 6517 #### [facility] [address], [address] [place] [address] [employer] Supervisor: Serg Rose MDSodium [Moles/Vol]142 mmol/XXkfktn018-048Fdxtc DiagnosticsComment on above:Performed By: #### 47004, 6517 #### [facility] [address], [address] [place] [address] [employer] Supervisor: Serg Rose MDUrea nitrogen [Mass/Vol]33 mg/dLHigh7-25Quest DiagnosticsComment on above:Performed By: #### 63810, 6517 #### [facility] [address], [address] [place] [address] [employer] Supervisor: Serg Rose MDUrea nitrogen/Creatinine [Mass ratio]29 mg/mg High6-22Quest DiagnosticsComment on above:Performed By: #### 59898, 6517 #### [facility] [address], [address] [place] [address] [employer] Supervisor: Serg Rose MDHEMOGLOBIN A1con 04-05-0900JIWULRLICK A1c8.3 % of total HgbHigh<5.7Quest DiagnosticsComment on above:Result Comment: For someone without known diabetes, a hemoglobin A1c value of 6.5% or greater indicates that they may have diabetes and this should be confirmed with a follow-up test. For someone with known diabetes, a value <7% indicates that their diabetes is well controlled and a value greater than or equal to 7% indicates suboptimal control. A1c targets should be individualized based on duration of diabetes, age, comorbid conditions, and other considerations. Currently, no consensus exists regarding use of hemoglobin A1c for diagnosis of diabetes for children.Performed By: #### 67106, 6517 #### [facility] [address], [address] [place] [address] [employer] Supervisor: Serg Rose MDLIPID PANEL, STANDARDon 68-91-9274Uenwxxshast [Mass/Vol]178 mg/dLNormal<200Quest DiagnosticsComment on above:Order Comment: FASTING:YESFASTING: YESPerformed By: #### 66240, 6517 #### [facility] [address], [address] [place] [address] [employer] Supervisor: Serg PIZARROholesterol in HDL [Mass/Vol]57 mg/dLNormal> OR = 50Quest DiagnosticsComment on above:Order Comment: FASTING:YESFASTING: YES Performed By: #### 74274, 6517 #### [facility] [address], [address] [place] [address] [employer] Supervisor: Serg PIZARROholesterol in LDL [Mass/Vol]94 mg/dLNormal Quest DiagnosticsComment on above:Order Comment: FASTING:YESFASTING: YESResult Comment: Reference range: <100 Desirable range <100 mg/dL for primary prevention; <70 mg/dL for patients with CHD or diabetic patients with > or = 2 CHD risk factors. LDL-C is now calculated using the Evangelina calculation, which is a validated novel method providing better accuracy than the Friedewald equation in the estimation of LDL-C. Remberto BECKFORD et al. BEN. 2013;310(19): 1674-3361 (http://education.Endosense/faq/CKJ649)Performed By: #### 45283, 6517 #### [facility] [address], [address] [place] [address] [employer] Supervisor: Serg Castaneda.total/Cholesterol in HDL [Mass ratio]3.1 {ratio}Normal<5.0Quest DiagnosticsComment on above:Order Comment: FASTING:YESFASTING: YESPerformed By: #### 22440, 6517 #### [facility] [address], [address] [place] [address] [employer] Supervisor: Serg EISENBERG HDL NWYBMAZINAL650 mg/dL (calc)Normal<130 Quest DiagnosticsComment on above:Order Comment: FASTING:YESFASTING: YESResult Comment: For patients with diabetes plus 1 major ASCVD risk factor, treating to a non-HDL-C goal of <100 mg/dL (LDL-C of <70 mg/dL) is considered a therapeutic option.Performed By: #### 05761, 6517 #### [facility] [place] [address] [employer] Supervisor: Serg Rose MDTriglyceride [Mass/Vol]172 mg/dLHigh<150Quest DiagnosticsComment on above:Order Comment: FASTING:YESFASTING: YESPerformed By: #### 29774, 6517 #### [facility] [address], [address] [place] [address] [employer] Supervisor: Serg Rose MDCBC (INCLUDES DIFF/PLT)on 34-77-3264Ptcsyejax (Bld) [#/Vol]0.04 10*3/uLNormal0-200Quest DiagnosticsComment on above:Performed By: #### 15815, 6399, 905, 718, 7600, 622, 496, 09188, 57467 #### [facility] [address], [address] [place] [address] [employer] Supervisor: Serg Rose MDBasophils/100 WBC (Bld)0.6 %NormalQuest DiagnosticsComment on above:Performed By: #### 92458, 6399, 905, 718, 7600, 622, 496, 98456, 75678 #### [facility] [address], [address] [place] [address] [employer] Supervisor: Serg Rose MDEosinophils (Bld) [#/Vol]0.08 10*3/uLNormal 15-500Quest DiagnosticsComment on above:Performed By: #### 63837, 6399, 905, 718, 7600, 622, 496, 51346, 29591 #### [facility] [address], [address] [place] [address] [employer] Supervisor: Serg Rose MDEosinophils/100 WBC (Bld)1.2 %NormalQuest DiagnosticsComment on above:Performed By: #### 84496, 6399, 905, 718, 7600, 622, 496, 93177, 76218 #### [facility] [place] [address] [employer] Supervisor: Serg Rose MDErythrocyte distribution width (RBC) [Ratio] 12.0 %Gfvmde06.0-15.0Quest DiagnosticsComment on above:Performed By: #### 03979, 6399, 905, 718, 7600, 622, 496, 85338, 93487 #### [facility] [place] [address] [employer] Supervisor: Serg Rose MDHematocrit (Bld) [Volume fraction]41.9 %Normal 35.0-45.0Quest DiagnosticsComment on above:Performed By: #### 35852, 6399, 905, 718, 7600, 622, 496, 56152, 43788 #### [facility] [place] [address] [employer] Supervisor: Serg Rose MDHemoglobin (Bld) [Mass/Vol]13.8 g/dLNormal 11.7-15.5Quest DiagnosticsComment on above:Performed By: #### 00030, 6399, 905, 718, 7600, 622, 496, 71577, 23171 #### [facility] [place] [address] [employer] Supervisor: Serg Rose MDLymphocytes (Bld) [#/Vol]1.642 10*3/uLNormal 850-3900Quest DiagnosticsComment on above:Performed By: #### 04887, 6399, 905, 718, 7600, 622, 496, 42783, 64452 #### [facility] [place] [address] [employer] Supervisor: Serg Rose MDLymphocytes/100 WBC (Bld)24.5 %NormalQuest DiagnosticsComment on above:Performed By: #### 15645, 6399, 905, 718, 7600, 622, 496, 48867, 97598 #### [facility] [place] [address] [employer] Supervisor: Serg RASMUSSENCH (RBC) [Entitic mass]29.7 nmHnzknd95.0-33.0 Quest DiagnosticsComment on above:Performed By: #### 90717, 6399, 905, 718, 7600, 622, 496, 92316, 96698 #### [facility] [place] [address] [employer] Supervisor: Serg RASMUSSENCHC (RBC) [Mass/Vol]32.9 g/sZFqwaqs08.0-36.0 Quest DiagnosticsComment on above:Performed By: #### 23863, 6399, 905, 718, 7600, 622, 496, 07114, 82756 #### [facility] [place] [address] [employer] Supervisor: Serg RASMUSSENCV (RBC) [Entitic vol]90.1 bVTrxnju23.0-100.0 [facility] DiagnosticsComment on above:Performed By: #### 88294, 6399, 905, 718, 7600, 622, 496, 28753, 05194 #### [facility] [place] [address] [employer] Supervisor: Serg Rose MDMonocytes (Bld) [#/Vol]0.503 10*3/uLNormal 200-950Quest DiagnosticsComment on above:Performed By: #### 61532, 6399, 905, 718, 7600, 622, 496, 87117, 17286 #### [facility] [place] [address] [employer] Supervisor: Serg Rose MDMonocytes/100 WBC (Bld)7.5 %NormalQuest DiagnosticsComment on above:Performed By: #### 68559, 6399, 905, 718, 7600, 622, 496, 58302, 73551 #### [facility] [place] [address], [address] [place] [address] [employer] Supervisor: Serg Looneyutrophiltaylor (Bld) [#/Vol]4.435 10*3/uLNormal 1500-7800Quest DiagnosticsComment on above:Performed By: #### 56758, 6399, 905, 718, 7600, 622, 496, 39138, 68719 #### [facility] of [address], [address] [place] [address] [employer] Supervisor: Serg Rosas/100 WBC (Bld)66.2 %NormalQuest DiagnosticsComment on above:Performed By: #### [id number], 6399, 905, 718, 7600, 622, 496, 17456, 96520 #### [facility] [place] [address], [address] [place] [address] [employer] Supervisor: Serg Rose MDPlatelet mean volume (Bld) [Entitic vol]11.2 fLNormal7.5-12.5Quest DiagnosticsComment on above:Performed By: #### 26726, 6399, 905, 718, 7600, 622, 496, 41574, 85548 #### [facility] [place] [address] [address] , [address] [place] [address] [employer] Supervisor: Serg Rose MDPlatelets (Bld) [#/Vol]249 10*3/uLNormal 140-400Quest DiagnosticsComment on above:Performed By: #### 61540, 6399, 905, 718, 7600, 622, 496, 25813, 23297 #### [facility] [place] [address] [address] , [address] [place] [address] [employer] Supervisor: Serg Rose MDRBC (Bld) [#/Vol]4.65 10*6/uLNormal3.80-5.10 [facility] DiagnosticsComment on above:Performed By: #### 21475, 6399, 905, 718, 7600, 622, 496, 82943, 21136 #### [facility] [place] [address] [employer] Supervisor: Serg Rose MDWBC (d) [#/Vol]6.7 10*3/uLNormal3.8-10.8 [facility] DiagnosticsComment on above:Performed By: #### 80594, 6399, 905, 718, 7600, 622, 496, 11243, 60840 #### [facility] [place] [address] [employer] Supervisor: Serg Rose MDCOMPREHENSIVE METABOLIC PANELon 08-14-2021 Albumin [Mass/Vol]4.3 g/dLNormal3.6-5.1Quest DiagnosticsComment on above: Performed By: #### 94969, 6399, 905, 718, 7600, 622, 496, 57198, 96184 #### [facility] [place] [address] [employer] Supervisor: Serg Rose MDAlbumin/Globulin [Mass ratio]1.7 {ratio}Normal 1.0-2.5Quest DiagnosticsComment on above:Performed By: #### 79903, 6399, 905, 718, 7600, 622, 496, 93274, 94177 #### [facility] of [address], [address] [place] [address] [employer] Supervisor: Serg Rose MDALP [Catalytic activity/Vol]68 U/WPhznzj00-197 [facility]osticsComment on above:Performed By: #### 94955, 6399, 905, 718, 7600, 622, 496, 85809, 49378 #### [facility] [place] [address] [employer] Supervisor: Serg Rose MDALT [Catalytic activity/Vol]17 U/LNormal6-29 [facility] DiagnosticsComment on above:Performed By: #### 99794, 6399, 905, 718, 7600, 622, 496, 83328, 83401 #### [facility] [address], [address] [place] [address] [employer] Supervisor: Serg Rose MDAST [Catalytic activity/Vol]14 U/BXzhqud62-12 [facility] DiagnosticsComment on above:Performed By: #### 71143, 6399, 905, 718, 7600, 622, 496, 93116, 72638 #### [facility] [place] [address] [employer] Supervisor: Serg Rose MDBilirubin [Mass/Vol]0.4 mg/dLNormal0.2-1.2 [facility] DiagnosticsComment on above:Performed By: #### 71624, 6399, 905, 718, 7600, 622, 496, 68725, 33839 #### [facility] [place] [address] [employer] Supervisor: Serg Rose MDCalcium [Mass/Vol]10.0 mg/dLNormal8.6-10.4 [facility] DiagnosticsComment on above:Performed By: #### 15703, 6399, 905, 718, 7600, 622, 496, 91846, 43908 #### [facility] of [address], [address] [place] [address] [employer] Supervisor: Serg Rose MDChloride [Moles/Vol]100 mmol/ZNhothv88-748 [facility] DiagnosticsComment on above:Performed By: #### 05052, 6399, 905, 718, 7600, 622, 496, 30900, 39184 #### [facility] [place] [address] [employer] Supervisor: Serg Rose MDCO2 [Moles/Vol]32 mmol/WIllsjf55-97Ydjuw DiagnosticsComment on above:Performed By: #### 33549, 6399, 905, 718, 7600, 622, 496, 23725, 88856 #### [facility] [place] [address] [employer] Supervisor: Serg PIZARROreatinine [Mass/Vol]1.02 mg/dLHigh0.50-0.99 [facility] DiagnosticsComment on above:Result Comment: For patients >49 years of age, the reference limit for Creatinine is approximately 13% higher for people identified as -[place] Citizen.Performed By: #### 03276, 6399, 905, 718, 7600, 622, 496, 68081, 99442 #### [facility] [place] [address] [employer] Supervisor: Serg Rose MDeGFR NON-AFR. KHGRKBLZ90 mL/min/1.09k8Itm> OR = 60Quest DiagnosticsComment on above:Performed By: #### 92100, 6399, 905, 718, 7600, 622, 496, 07880, 65798 #### [facility] [place] [address] [employer] Supervisor: Serg Rose MDGFR/1.73 sq M.predicted among blacks MDRD (S/P/Bld) [Vol rate/Area]65 mL/min/{1.73_m2}Normal> OR = 60[facility] Comment on above:Performed By: #### 56151, 6399, 905, 718, 7600, 622, 496, 79613, 63660 #### [facility] [address], [address] [place] [address] [employer] Supervisor: Serg Rose MDGlobulin (S) [Mass/Vol]2.6 g/dLNormal1.9-3.7 [facility] DiagnosticsComment on above:Performed By: #### 78704, 6399, 905, 718, 7600, 622, 496, 98533, 75677 #### [facility] [place] [address] [employer] Supervisor: Segr Rose MDGlucose [Mass/Vol]295 mg/eQFsmh84-89Svifl DiagnosticsComment on above:Result Comment: Fasting reference interval For someone without known diabetes, a glucose value >125 mg/dL indicates that they may have diabetes and this should be confirmed with a follow-up test.Performed By: #### 84308, 6399, 905, 718, 7600, 622, 496, 89405, 99414 #### [facility] [place] [address] [employer] Supervisor: Serg Rose MDPotassium [Moles/Vol]4.3 mmol/LNormal3.5-5.3 [facility]osticsComment on above:Performed By: #### 59531, 6399, 905, 718, 7600, 622, 496, 86037, 65137 #### [facility] [place] [address] [employer] Supervisor: Serg Rose MDProtein [Mass/Vol]6.9 g/dLNormal6.1-8.1Quest DiagnosticsComment on above:Performed By: #### 78178, 6399, 905, 718, 7600, 622, 496, 05829, 02884 #### [facility] [place] [address] [employer] Supervisor: Serg Rose MDSodium [Moles/Vol]139 mmol/NIfrawh012-264Kzrcy DiagnosticsComment on above:Performed By: #### 12095, 6399, 905, 718, 7600, 622, 496, 31247, 21768 #### [facility] [place] [address] [employer] Supervisor: Serg Rose MDUrea nitrogen [Mass/Vol]27 mg/dLHigh7-25Quest DiagnosticsComment on above:Performed By: #### 04515, 6399, 905, 718, 7600, 622, 496, 80616, 99430 #### [facility] [address], [address] [place] [address] [employer] Supervisor: Serg Rose MDUrea nitrogen/Creatinine [Mass ratio]26 mg/mg High6-22Quest DiagnosticsComment on above:Performed By: #### 08750, 6399, 905, 718, 7600, 622, 496, 68454, 66503 #### [facility] [address], [address] [place] [address] [employer] Supervisor: Serg Rose MDHEMOGLOBIN A1con 23-49-3963JSGXAZFYKB A1c12.4 % of total HgbHigh<5.7Quest DiagnosticsComment on above:Result Comment: For someone without known diabetes, a hemoglobin A1c value of 6.5% or greater indicates that they may have diabetes and this should be confirmed with a follow-up test. For someone with known diabetes, a value <7% indicates that their diabetes is well controlled and a value greater than or equal to 7% indicates suboptimal control. A1c targets should be individualized based on duration of diabetes, age, comorbid conditions, and other considerations. Currently, no consensus exists regarding use of hemoglobin A1c for diagnosis of diabetes for children.Performed By: #### 72716, 6517 #### [facility] [address], [address] [place] [address] [employer] Supervisor: Serg Rose MDLIPID PANEL, STANDARDon 52-10-5199Nzwphpiniia [Mass/Vol]180 mg/dLNormal<200Quest DiagnosticsComment on above:Order Comment: FASTING:YES FASTING: YESPerformed By: #### 90367, 6399, 905, 718, 7600, 622, 496, 47822, 89167 #### [facility] [address], [address] [place] [address] [employer] Supervisor: Serg PIZARROholesterol in HDL [Mass/Vol]55 mg/dLNormal> OR = 50Quest DiagnosticsComment on above:Order Comment: FASTING:YES FASTING: YESPerformed By: #### 75778, 6399, 905, 718, 7600, 622, 496, 00768, 44927 #### [facility] [address], [address] [place] [address] [employer] Supervisor: Serg PIZARROholesterol in LDL [Mass/Vol]95 mg/dLNormal [facility]osticsComment on above:Order Comment: FASTING:YES FASTING: YESResult Comment: Reference range: <100 Desirable range <100 mg/dL for primary prevention; <70 mg/dL for patients with CHD or diabetic patients with > or = 2 CHD risk factors. LDL-C is now calculated using the Evangelina calculation, which is a validated novel method providing better accuracy than the Friedewald equation in the estimation of LDL-C. Rmeberto SS et al. BEN. 2013;310(19): 1985-2536 (http://education.Endosense/faq/OVH844)Performed By: #### 07548, 6399, 905, 718, 7600, 622, 496, 72737, 90739 #### [facility] [address], [address] [place] [address] [employer] Supervisor: Serg Jacksonstaury.total/Cholesterol in HDL [Mass ratio]3.3 {ratio}Normal<5.0Quest DiagnosticsComment on above:Order Comment: FASTING:YES FASTING: YESPerformed By: #### 85820, 6399, 905, 718, 7600, 622, 496, 29218, 65990 #### [facility] [address], [address] [place] [address] [employer] Supervisor: Serg EISENBERG HDL MAQKQJTRGJQ456 mg/dL (calc)Normal<130 [facility]osticsComment on above:Order Comment: FASTING:YES FASTING: YESResult Comment: For patients with diabetes plus 1 major ASCVD risk factor, treating to a non-HDL-C goal of <100 mg/dL (LDL-C of <70 mg/dL) is considered a therapeutic option.Performed By: #### 92085, 6399, 905, 718, 7600, 622, 496, 21620, 38594 #### [facility] [place] [address] [employer] Supervisor: Serg Rose MDTriglyceride [Mass/Vol]200 mg/dLHigh<150Quest DiagnosticsComment on above:Order Comment: FASTING:YES FASTING: YESResult Comment: If a non-fasting specimen was collected, consider repeat triglyceride testing on a fasting specimen if clinically indicated. Lien et al. J. of Clin. Lipidol. 2015;9:129-169.Performed By: #### 76368, 6399, 905, 718, 7600, 622, 496, 37848, 21495 #### [facility] [place] [address] [employer] Supervisor: Serg Rose MDMAGNESIUMon 85-87-0866Ddicepaqx [Mass/Vol]1.6 mg/dLNormal1.5-2.5Quest DiagnosticsComment on above:Performed By: #### 53719, 6399, 905, 718, 7600, 622, 496, 51093, 29143 #### [facility] [place] [address] [employer] Supervisor: Serg Rose MDPHOSPHATE ( PHOSPHORUS)on 08-14-2021 Phosphate [Mass/Vol]3.7 mg/dLNormal2.1-4.3Quest DiagnosticsComment on above: Performed By: #### 24571, 6399, 905, 718, 7600, 622, 496, 36158, 13731 #### [facility] [address], [address] [place] [address] [employer] Supervisor: Serg Rose MDPTH, INTACT WITHOUT CALCIUMon 08-14-2021 PARATHYROID HORMONE, UIPFJK17 pg/jVYhckql48-54Vsoec DiagnosticsComment on above: Result Comment: Interpretive Guide Intact PTH Calcium ------- Normal Parathyroid Normal Normal Hypoparathyroidism Low or Low Normal Low Hyperparathyroidism Primary Normal or High High Secondary High Normal or Low Tertiary High High Non-Parathyroid Hypercalcemia Low or Low Normal HighPerformed By: #### 04897, 6399, 905, 718, 7600, 622, 496, 84636, 90094 #### [facility] [address], [address] [place] [address] [employer] Supervisor: Serg Rose MDURIC ACIDon 55-93-1840Wgcmr [Mass/Vol]4.4 mg/dLNormal2.5-7.0Quest DiagnosticsComment on above:Result Comment: Therapeutic target for gout patients: <6.0 mg/dLPerformed By: #### 69616, 6399, 905, 718, 7600, 622, 496, 63226, 58771 #### [facility] [address], [address] [place] [address] [employer] Supervisor: Serg Rose MDVITAMIN D,25-OH,TOTAL,IAon 23-78-1359OJXGIUO D,25-OH,TOTAL,IA51 ng/jEZdgban09-748Ijhtp DiagnosticsComment on above:Result Comment: Vitamin D Status 25-OH Vitamin D: Deficiency: <20 ng/mL Insufficiency: 20 - 29 ng/mL Optimal: > or = 30 ng/mL For 25-OH Vitamin D testing on patients on D2-supplementation and patients for whom quantitation of D2 and D3 fractions is required, the QuestAssureD(TM) 25-OH VIT D, (D2,D3), LC/MS/MS is recommended: order code 36778 (patients >2yrs). See Note 1 Note 1 For additional information, please refer to http://education.[employer] Natural.ITM Power/faq/XDS155 (This link is being provided for informational/ educational purposes only.)Performed By: #### 26196, 6399, 905, 718, 7600, 622, 496, 93911, 80671 #### [facility] [address], [address] [place], [place] [address] [employer] Supervisor: Serg Rose MDALBUMIN, RANDOM URINE W/CREATININEon 69-13-7519EDOOQXZ, URINE2.8 mg/dLNormalSee Note:[facility] DiagnosticsComment on above:Order Comment: FASTING:UNKNOWN FASTING: UNKNOWNResult Comment: Reference Range: Reference Range Not establishedPerformed By: #### 46901, 6517 #### [facility] [address], [address] [place] [address] [employer] Supervisor: Serg Rose MDALBUMIN/CREATININE RATIO, RANDOM URINE10 mcg/mg creatNormal<30Quest DiagnosticsComment on above:Order Comment: FASTING:UNKNOWN FASTING: UNKNOWNResult Comment: The ADA defines abnormalities in albumin excretion as follows: Albuminuria Category Result (mcg/mg creatinine) Normal to Mildly increased <30 Moderately increased 30-299 Severely increased > OR = 300 The ADA recommends that at least two of three specimens collected within a 3-6 month period be abnormal before considering a patient to be within a diagnostic category.Performed By: #### 19550, 6517 #### [facility] [address], [address] [place] [address] [employer] Supervisor: Serg PIZARROreatinine (U) [Mass/Vol]293 mg/lGQnxb64-146 [facility]osticsComment on above:Order Comment: FASTING:UNKNOWN FASTING: UNKNOWNPerformed By: #### 61601, 6517 #### [facility] [address], [address] [place] [address] [employer] Supervisor: Serg Rose [facility] METABOLIC PANELon 63-53-4538Rimaakb [Mass/Vol]9.6 mg/dLNormal8.6-10.4Quest DiagnosticsComment on above:Performed By: #### 01987, 6517 #### [facility] [address], [address] [place] [address] [employer] Supervisor: Serg Rose MDChloride [Moles/Vol]101 mmol/MSiarhr55-458 [facility]osticsComment on above:Performed By: #### 91895, 6517 #### [facility] [address], [address] [place] [address] [employer] Supervisor: Serg Rose MDCO2 [Moles/Vol]28 mmol/HWtdkpk40-76Aemeq DiagnosticsComment on above:Performed By: #### 72326, 6517 #### [facility] [place] [address] [employer] Supervisor: Serg PIZARROreatinine [Mass/Vol]1.33 mg/dLHigh0.50-0.99 [facility]osticsComment on above:Result Comment: For patients >49 years of age, the reference limit for Creatinine is approximately 13% higher for people identified as -[place] Citizen.Performed By: #### 12727, 6517 #### [facility] [place] [address] [employer] Supervisor: Serg Rose MDeGFR NON-AFR. GYCOWKON56 mL/min/1.62j0Yke> OR = 60Quest DiagnosticsComment on above:Performed By: #### 53745, 6517 #### [facility] [place] [address] [employer] Supervisor: Serg Rose MDGFR/1.73 sq M.predicted among blacks MDRD (S/P/Bld) [Vol rate/Area]47 mL/min/{1.73_m2}Low> OR = 60Quest DiagnosticsComment on above:Performed By: #### 53975, 6517 #### [facility] [place] [address] [employer] Supervisor: Serg Rose MDGlucose [Mass/Vol]176 mg/jCBmye53-28Ugymc DiagnosticsComment on above:Result Comment: Fasting reference interval For someone without known diabetes, a glucose value >125 mg/dL indicates that they may have diabetes and this should be confirmed with a follow-up test.Performed By: #### 38222, 6517 #### [facility] [place] [address] [employer] Supervisor: Serg Rose MDPotassium [Moles/Vol]4.5 mmol/LNormal3.5-5.3 [facility]osticsComment on above:Performed By: #### 01044, 6517 #### [facility] of [address], [address] [place] [address] [employer] Supervisor: Serg KOHLERodium [Moles/Vol]139 mmol/HAumnon814-051Nlirv DiagnosticsComment on above:Performed By: #### 40566, 6517 #### [facility] [address], [address] [place] [address] [employer] Supervisor: Serg Rose MDUrea nitrogen [Mass/Vol]35 mg/dLHigh7-25Quest DiagnosticsComment on above:Performed By: #### 65816, 6517 #### [facility] [address], [address] [place] [address] [employer] Supervisor: Serg Rose MDUrea nitrogen/Creatinine [Mass ratio]26 mg/mg High6-22Quest DiagnosticsComment on above:Performed By: #### 61183, 6517 #### [facility] [address], [address] [place] [address] [employer] Supervisor: Serg Rose MD Vital Signs Date TimeVital SignValuePerforming NsvknimrpHqwfrdom77-57-1052 08:08-0400Body vhuokz637.1 cmJr. Stepanic DO Work Phone: [facility]Fidfyyeotu56-49-0162 08:08-0400Body mass index (BMI) [Ratio]32.12 kg/m2Jr. Stepanic DO Work Phone: [facility] SpringfieldXdqnegzftu14-45-6831 08:08-0400Body bnqjib86.54 kgJr. Stepanic DO Work Phone: [facility] SpringfieldQlwxvxxlqa26-36-0775 08:29-0400Body midqud944.6 cmMonalisa Bellamy [employer]GER-DIRECT SALES REPRESENTATIVE Work Phone: [facility]03-19-2024 08:29-0400Body mass index (BMI) [Ratio]31.31 kg/m2Monalisa Bellamy [employer]AV[employer] LIFT RIGGER-DIRECT SALES REPRESENTATIVE Work Phone: [facility] Oebblq66-31-4812 08:29-0400Body qxbrozvzghw49.9 [degF]Monalisa Bellamy APRNDeliaDIRECT SALES REPRESENTATIVE Work Phone: [facility] Ejlqic92-80-9471 08:29-0400Body cliydm53 kgMonalisa Bellamy APRN-DIRECT SALES REPRESENTATIVE Work Phone: [facility] Fjzikl12-38-1781 08:29-0400Diastolic blood cocsrzet19 mm[Hg]Monalisa Bellamy APRN-DIRECT SALES REPRESENTATIVE Work Phone: [facility]03-19-2024 08:29-0400Heart rate 90 /minMonalisa Bellamy APRN-DIRECT SALES REPRESENTATIVE Work Phone: [facility] Tpbdpl44-46-9253 08:29-0400 Respiratory rate18 /minMonalisa Bellamy APRN-DIRECT SALES REPRESENTATIVE Work Phone: [facility] Wanahn45-50-9488 08:29-6201ReP3% (BldA) [Mass fraction]98 %Monalisa Bellamy APRN-DIRECT SALES REPRESENTATIVE Work Phone: [facility]03-19-2024 08:29-0400Systolic blood sandsitl064 mm[Hg]Monalisa Bellamy APRN-DIRECT SALES REPRESENTATIVE Work Phone: [facility] HospitalGoBeMe Encounters Encounter DateEncounter TypeCare ProviderFacilityStart: 10-14-2024 End: 34-42-0817Gluewdiht encounterJr. Gal Simons DO Work Phone: [facility] ORTHOPAEDICSComment on above:FallStart: 06-07-2024 End: 68-54-6321Rliutd OnlyLuis Armando Sims Furlong DO Work Phone: [facility] Family MedicineStart: 06-04-2024 End: 89-27-2533XyqakbIdayyt G Furlong DO Work Phone: [facility] Family MedicineComment on above:Essential (primary) hypertensionStart: 04-06-2024 End: 28-22-8496FjnocrJveqxc Bethany Handy DO Work Phone: [facility] - Family MedicineStart: 03-19-2024 End: 05-78-4008CrnjtmFcbs [facility] Medicine - Family MedicineComment on above:Type 2 diabetes mellitus with diabetic chronic kidney disease ([facility]Start: 03-03-2024 End: 45-80-6398Wmbtdq flowsheetJr. Gal Simons DO Work Phone: [facility] ORTHOStart: 03-03-2024 End: 65-69-7387Jvujpt flowsheetJr. Gal Simons DO Work Phone: [facility] ORTHOStart: 03-03-2024 End: 87-80-3764Hpdyzi outpatient visit 25 minutesJr. Gal Simons DO Work Phone: [facility] ORTHOComment on above:Acute hip pain, left; Acute hip pain, right; H/O total hip arthroplasty, bilateralStart: 03-03-2024 End: 31-59-6788bwjsfvmxiaSO., GAL SIMONSNot AvailableStart: 01-08-2024 End: 29-60-9966MkctjsJuet [facility] - Family MedicineStart: 12-05-2023 End: 25-62-4413PzabocYinzr [facility] Medicine - Family MedicineComment on above:Essential (primary) hypertensionStart: 09-18-2023 End: 92-48-3781MpzofeIife Rose Kuns HEAVY LIFT RIGGER-DIRECT SALES REPRESENTATIVE Work Phone: [facility] Internal Medicine - Family MedicineComment on above:Type 2 diabetes mellitus with diabetic chronic kidney disease ([facility]Start: 18-28-5655FuflhkFamilia Bellamy HEAVY LIFT RIGGER-DIRECT SALES REPRESENTATIVE Work Phone: [facility] Internal Medicine - Family MedicineComment on above:Type 2 diabetes mellitus with other diabetic kidney complication, without long-term current use of insulin (CMS-HCC) (Primary Dx) Start: 08-05-2023 End: 35-31-0219gogqsydrfwKOTH ROSE [facility] Hospitaltart: 08-05-2023 End: 28-10-4269fwybgklontIMMM ROSE [facility]-PontiacComment on above: Type 2 diabetes mellitus with other diabetic kidney complication, without long- term current use of insulin ([facility]) (Primary Dx)Start: 08-05-2023 End: 94-01-1122Mahnpr outpatient visit 25 minutesMonalisa Brantley Mia HEAVY LIFT RIGGER-DIRECT SALES REPRESENTATIVE Work Phone: [facility] Internal Medicine - Family MedicineComment on above:Type 2 diabetes mellitus with other diabetic kidney complication, without long-term current use of insulin ([facility]-HCC) (Primary Dx); Stage 3a chronic kidney disease ([facility]); PVD (peripheral vascular disease) ([facility]); Mixed hyperlipidemia; Class 1 obesity due to excess calories with serious comorbidity and body mass index (BMI) of 31.0 to 31.9 in adultStart: 31-73-2719QojffmSfsw Pooja Mia HEAVY LIFT RIGGER-DIRECT SALES REPRESENTATIVE Work Phone: [facility] - Family MedicineStart: 03-79-6771TrfrthUphl Rose Kuns HEAVY LIFT RIGGER-DIRECT SALES REPRESENTATIVE Work Phone: [facility] Internal Medicine - Family MedicineStart: 72-27-7045BrmifeOdvi Rose Kuns HEAVY LIFT RIGGER-DIRECT SALES REPRESENTATIVE Work Phone: [facility] Internal Medicine - Family MedicineComment on above:Essential (primary) hypertensionStart: 12-11-2021 End: 11-81-4751lovmlclxycZS LUIS ARMANDO Sims FURLONGFacility:H1 Procedures DateProcedureProcedure DetailPerforming ClinicianStart: 67-52-6480Vunas hip unilateral with pelvis 2-3 viewsJr. Gal Simons DO Work Phone: Start: 20-08-7828Ukawd hip unilateral with pelvis 2-3 viewsJr. Gal Simons DO Work Phone: Start: 61-24-9168Qsidl depression screening assessment Monalisa LORENZP Work Phone: Start: 21-50-9541Tzghillkijzr [Mass/volume] in Urine by Test stripMonalisa GONZALEZ Work Phone: Start: 01-80-7729QsohwfrtenoSsvv Kuns APRN-FNP Work Phone: Start: 68-57-2235Exciv depression screening assessment Monalisa GONZALEZ Work Phone: Start: 70-88-0900Qxomsmdlaxhf [Mass/volume] in Urine by Test stripMonalisa GONZALEZ Work Phone: Plan of Treatment DateCare ActivityDetailAuthorStart: 03-01-2026 End: 74-04-7964Aqqydbi encounter wmpexovfy15/14/2026 8:00 AM EDT Office Visit [facility] [address] [place] [address] Jr. Gal Simons, DO [address] [place] [address] [facility] ORTHOStart: 08-04-2024 Administration of varicella zoster vaccineZoster (Shingles) Vaccine (1 of 2) [facility] SystemComment on above:Postponed from 2002 (Patient Refused)Start: 79-03-3599Ojfbx BMI Follow Up PlanAdult BMI Follow Up Plan [facility] [email or web address] SystemStart: 98-67-3301Ukyer BMI ScreeningAdult BMI Screening [facility] [email or web address] SystemStart: 08-21-3001Puuhrfuvwm ScreeningDepression Screening [facility] [email or web address] SystemStart: 50-73-7875Wwuf Risk ScreeningFall Risk Screening [facility] SystemStart: 73-07-5695Cjpgdvp ScreeningTobacco Screening [facility] [email or web address] SystemStart: 01-06-0572Fragd screening for proteinUrine MicroalbuminProMercy Memorial Hospitalca Health SystemStart: 03-03-2024 End: 30-09-1306Frvoyly encounter tzwvjgobv88/16/2024 8:00 AM EDT Office Visit [facility] [address] [address] [place] [address] Jr. Gal Simons, DO 112 [facility] [address] [place] [address] ArrivedNOMS [facility] ORTHOComment on above: ArrivedStart: 03-97-3466Urpydeown for malignant neoplasm of breastMammogram [facility] SystemStart: 33-83-1710Mnjcq BMI ScreeningAdult BMI Screening [facility] SystemStart: 31-12-8691Qdahwrlnkz ScreeningDepression Screening [facility] SystemStart: 87-23-5173Vftyxclf foot examinationDiabetic Foot ExamProWalker [facility] Health SystemStart: 28-71-4350Gjgfirz ScreeningTobacco Screening [facility] SystemStart: 74-40-5888Dpmdrtsgr vaccinationInfluenza Vaccine [facility] SystemStart: 12-68-1259Jfeeuzpp screeningDiabetic Ophthalmology ExamProCleveland Clinic [facility] SystemComment on above:Postponed from 1952 (Insurance / Financial)Start: 25-53-3281Inlhtwvnt vaccinationInfluenza Vaccine [facility] SystemComment on above:Postponed from 01/17/2023 (Patient Refused)Start: 08-05-2023 End: 00-70-8248Dbdwynv encounter xoiuouquq74/19/2024 8:40 AM EDT Office Visit [facility] [address] [place] [address] Monalisa Bellamy, CHRISSY-YASMANY [address] [place] [address] [facility] Family MedicineStart: 18-37-7356Lmhq Risk ScreeningFall Risk ScreeningTrumbull [facility] Hospital Health SystemStart: 14-62-6518Diobj screening for proteinUrine MicroalbuminProWalker [facility] Health SystemStart: 01-17-2023 Influenza vaccinationInfluenza VaccineProCleveland Clinic [facility]ucl[facility] SystemStart: 06-27-2018 DTaP,Tdap and Td Vaccines (2 - Td or Tdap)DTaP,Tdap and Td Vaccines (2 - Td or Tdap)[facility]: 15-55-5613Cuzxsskdjrddxo of varicella zoster vaccineZoster (Shingles) Vaccine (1 of 2)[facility]: 23-63-2135Rqngh BMI Follow Up PlanAdult BMI Follow Up PlanYadkin Valley Community Hospitaltart: 62-60-7099Ecpcdzep screeningDiabetic Ophthalmology ExamProChildren's Hospital of Columbustart: 06-20-1953Medicare Annual Wellness VisitMedicare Annual Wellness VisitPaulding County Hospital Immunizations Immunization DateImmunizationNotesCare LsdhumnlZomncoeu52-84-5781vtimjuplcujj polysaccharide vaccine, 23 valentMary Kuns HEAVY LIFT RIGGER-DIRECT SALES REPRESENTATIVE Work Phone: [facility] HospitalOlzeid91-06-7758mfkrgsyzermf conjugate vaccine, 13 valentMary Kuns HEAVY LIFT RIGGER-DIRECT SALES REPRESENTATIVE Work Phone: [facility] HospitalBqgbes14-36-9046nvkcfigcsrna polysaccharide vaccine, 23 valentMary Kuns HEAVY LIFT RIGGER-DIRECT SALES REPRESENTATIVE Work Phone: [facility]02-09-2009tetanus toxoid, reduced diphtheria toxoid, and acellular pertussis vaccine, adsorbedMary Kuns HEAVY LIFT RIGGER-DIRECT SALES REPRESENTATIVE Work Phone: [facility] Payers DatePayer CategoryPayerPolicy [id number] Health InsuranceS[facility] SUPPLE[facility] [id number] 2021Medicare [id number] [id number] [id number] 2..[id number] 2..[id number] [id number] Care Other (unspecified)COMMERCIAL Member Subscriber Plan / Payer (Effective for All Dates) Name: Gonzales Tamara Lincoln Relation to Subscriber: Self Name: Gonzales Tamara Lincoln Payer ID: Not on file Group ID: [id number] Type: Not on file Address: [address] [place], [place] [id number] COMMERCIAL - GENERIC PLAN [id number] Effective for all dates [phone] [facility] [address] [place] [address] [id number] Social History DateTypeDetailFacilityTobacco smoking status NHISTobacco smoking consumption unknownNOMS HealthcareStart: 56-27-6809Age assigned at birthNot on [facility] SystemStart: 06-29-2020 End: 35-54-8432Pkublz identityNot on [facility] SystemStart: 01-24-2023 End: 13-68-5791Xkuwmke smoking status NHISNever smoked tobaccoACMC Healthcare System SystemStart: 01-24-2023 End: 48-70-0491Zttyrzg use and exposureSmokeless tobacco non-userACMC Healthcare System SystemStart: 06-29-2020 End: 96-82-9937Dypmpml of Social functionACMC Healthcare System SystemStart: 01-24-2023 End: 75-98-4751Favzmocgv beverage intakeCurrent non-drinker of alcohol (finding) [facility] HospitalAdolescent depression screening eyudaijdhg9XowNndvnfYadkin Valley Community Hospitaltart: 42-49-5706MavNakwuc (finding)[facility] Medical Equipment Procedure CodeEquipment CodeEquipment Original TextEquipment IdentifierDatesCup Actb 50mm Pncl Sect Pinn Sector W/Gription 50mm - Sna - [id number] Start: 61-49-4199Xqy Actb 50mm 32mm +4mm Ntrl Altrx +4 Neut 48ami91tm - Sna - [id number]: 68-60-4531Ciz Fem 150mm 12mm Crl Amt Ti Corail Amt Collar Size 12 - Sna - [id number]: 16-19-0788Zg Fem 32mm +1mm 12/14 Tpr Articul/Rajendra Ball 32 +1 Gr - Sna - [id number]: 01-13-2018 Hip Dep Pf Spcl Mtl Construct - Sna - [id number]: 20-54-9727Wgpptg Hl Drlc Pncl Hip Mrthn [facility] Positive Stop - Sna - [id number] Start: 42-40-5705Xfm Canc Hip Cnn Gription 20mm Pinn Can Bone Screw 6.5scs66ks - Sna - [id number]: 01-13-20181 Unit by miscellaneous route in the morning. To be used with lantus insulin daily.[id number]: 08-11-2023 Clinical Notes 08-05-2023 to 10-15-2024 Note Date & SzmlJgrjMhjccapn75-53-2240 Telephone encounter Note* Telephone Encounter - Joleen Patterson - 10/15/2024 2:28 PM EDT Called to let Tamara know what Prosper Nelson recommended, she didn't pick up and delivery driver left a vm to go to Urgent Care or ER and to call back and schedule with Prosper next week if she feels that she needs to ne seen [facility]Fkwxfodzil98-19-5008 Miscellaneous Notes* Telephone Encounter - Joleen Patterson - 10/15/2024 2:28 PM EDT Called to let Tamara know what Prosper Nelson recommended, she didn't pick up and delivery driver left a vm to go to Urgent Care or ER and to call back and schedule with Prosper next week if she feels that she needs to ne seen * Telephone Encounter - Joleen Patterson - 10/14/2024 9:12 AM EDT Patient fell 10/09/24 where she had a RT JASON, said that she is black and blue and feels like it needs an xray, she has been walking on it but is in pain can we see today? She said that she can go to [place] or [place] Please advise [phone] documented in this encounterDoctors Hospital of SpringfieldUqmeppvpot79-82-2707 Telephone encounter Note* Telephone Encounter - Joleen Patterson - 10/14/2024 9:12 AM EDT Patient fell 10/09/24 where she had a RT JASON, said that she is black and blue and feels like it needs an xray, she has been walking on it but is in pain can we see today? She said that she can go to [place] or [place] Please advise [phone] [facility] SpringfieldQlxzkylveb69-16-8140 Miscellaneous Notes* Telephone Encounter - Luis Armando Sims Rozina, - 06/04/2024 12:29 AM EST She is way overdue for an appointment. Please set up documented in this [facility]01-17-2025 Telephone encounter Note* Telephone Encounter - Luis Armando Sims Rozina, - 06/04/2024 12:29 AM EST She is way overdue for an appointment. Please set up [facility]11-01-2024 Miscellaneous Notes* Telephone Encounter - Luis Armando Sims Rozina, - 03/19/2024 8:14 AM EDT Rx sent in. She is overdue for a diabetic recheck. Please set up documented in this encounterPaulding County Hospital11-01-2024 Telephone encounter Note* Telephone Encounter - Luis Armando Bethany Rozina, - 03/19/2024 8:14 AM EDT Rx sent in. She is overdue for a diabetic recheck. Please set up [facility]10-16-2024 History of Present illness Narrative* Jr. Gal Simons, - 03/03/2024 8:00 AM EDT Images from the original note were not included. HISTORY OF PRESENT ILLNESS: EST PT Tamara Rolon is an 73 y.o. @ female. (L) HIP (EST PT) HERE FOR BIENNIAL CHECK OF (L) JASON 01/13/18 (~6 YRS) XRAYS DONE TODAY, 03/03/24 IN [facility] NO BONE SCAN NO MDP / PREDNISONE FINISHED PHYSICAL THERAPY - POST OP NO PAIN MGMT DENIES ANY CURRENT DISCOMFORT. NOTES GOOD ROM ; DENIES ANY WEAKNESS. NO PAIN MEDS. (R) HIP (EST PT) HERE FOR BIENNIAL CHECK OF (R) JASON 10/13/17 (~6.5 YRS) XRAYS DONE TODAY, 03/03/24 IN [facility] NO BONE SCAN NO MDP / PREDNISONE FINISHED PHYSICAL THERAPY - POST OP NO PAIN MGMT DENIES ANY CURRENT DISCOMFORT. NOTES GOOD ROM ; DENIES ANY WEAKNESS. NO PAIN MEDS. ALLERGIES: Allergies Allergen Reactions Codeine Penicillins Hives Percocet [Oxycodone-Acetaminophen] Soliqua [Insulin Glargine-Lixisenatide] HOME MEDICATIONS: Current Outpatient Medications Medication Instructions Ascorbic Acid (VITAMIN C PO) Take by mouth aspirin 81 MG EC tablet Every 24 hours Calcium Citrate (CITRACAL PO) Take by mouth cholecalciferol (D3 5000) 125 MCG (5000 UT) capsule Take by mouth empagliflozin (JARDIANCE) 25 mg, Every morning lisinopril-hydroCHLOROthiazide 20-12.5 MG tablet 1 tablet, Daily RT Methylsulfonylmethane (MSM PO) Take by mouth Ozempic (2 MG/DOSE) 2 mg, Every 7 days simvastatin (ZOCOR) 40 mg, Nightly PHYSICAL EXAM: Hip Musculoskeletal Exam Gait Gait is normal. Inspection Leg length disparity: no discrepancy Right Erythema: none Ecchymosis: none Edema: none Deformity: none Previous incision: anterolateral Incision: well-healed Left Erythema: none Ecchymosis: none Edema: none Deformity: none Previous incision: anterolateral Incision: well-healed Palpation Right Right hip palpation is normal. Increased warmth: none Tenderness: none Left Left hip palpation is normal. Increased warmth: none Tenderness: none Range of Motion Right Right hip range of motion is within functional limits. Active ROM: normal. Passive ROM: normal. Left Left hip range of motion is within functional limits. Active ROM: normal. Passive ROM: normal. Strength Right Right hip strength is normal. Extension: 5/5. Flexion: 5/5. Internal rotation: 5/5. External rotation: 5/5. Adduction: 5/5. Abduction: 5/5. Left Left hip strength is normal. Extension: 5/5. Flexion: 5/5. Internal rotation: 5/5. External rotation: 5/5. Adduction: 5/5. Abduction: 5/5. Neurovascular Right Right hip neurovascular exam is normal. Pulses - PT: normal Posterior tibial: 2+ Left Left hip neurovascular exam is normal. Pulses - PT: normal Posterior tibial: 2+ Vitals: Body mass index is 32.12 kg/m . Tobacco Use: Low Risk (03/03/2024) Patient History Smoking Tobacco Use: Never Smokeless Tobacco Use: Never Passive Exposure: Not on file Alcohol Use: Not on file IMAGING: XR hip left 2 or 3 views Imaging Result: AP and lateral of left hip showed acceptable position and alignment of left total hip arthroplasty.There was no evidence of loosening of the acetabular cup or femoral stem. Femoral head was well centered in the acetabular liner without evidence of asymmetric or accelerated wear. There was no grossevidence of fracture and/or dislocation. Impression: Unremarkable left total hip arthroplasty. XR hip right 2 or 3 views Imaging Result: AP and lateral of right hip showed acceptable position and alignment of right total hip arthroplasty. There was no evidence of loosening of the acetabular cup or femoral stem. Femoral head was well centered in the acetabular liner without evidence of asymmetric or accelerated wear. There was no gross evidence of fracture and/or dislocation. Impression: Unremarkable right total hip arthroplasty. Procedures Orders Placed This Encounter Procedures XR hip left 2 or 3 views Order Specific Question: Reason for exam: Answer: POST-OP XR hip right 2 or 3 views Order Specific Question: Reason for exam: Answer: POST-OP ASSESSMENT: ICD-10-CM 1. Acute hip pain, left M25.552 XR hip left 2 or 3 views 2. Acute hip pain, right M25.551 XR hip right 2 or 3 views 3. H/O total hip arthroplasty, bilateral Z96.643 PLAN: We have answered all the patients questions and explained the patients condition, decision making and plan including the risks and benefits associated with said plan in layman''s terms in a language the patient could understand easily. If patient''s symptoms significantly worsen and they cannot get a hold of us or their family physician, we have recommended that the patient proceed to the nearest emergency department (room). Dr. Simons obtained history and examined the patient, I am acting as scribe for Dr. Simons/hoa, PLAN: We have discussed b/l hip xrays with patient at bedside. Patient is pleased with her b/l hipsas she admits her b/l hips are better now than they were prior to sx. She has good strength / ROM of her b/l hips with examination today. We have discussed avoiding motions including, but not limitedto : no high impact. We have discussed antibiotic use prior to procedures. We have discussed her HEP and restrictions and will see her back in 2 years to reassess her b/l hips with repeat xrays. Gal Simons D.O. documented in this [facility]08-22-2024 Miscellaneous Notes* Telephone Encounter - Luis Armando Handy DO - 01/08/2024 8:53 AM EDT Rx sent in. She is due for a diabetic recheck documented in this [facility]Paul[facility]08-22-2024 Telephone encounter Note* Telephone Encounter - Luis Armando Handy DO - 01/08/2024 8:53 AM EDT Rx sent in. She is due for a diabetic recheck [facility]07-19-2024 Miscellaneous Notes* Telephone Encounter - Luis Armando Handy DO - 12/05/2023 8:29 AM EDT Rx sent in. She is due for diabetic recheck anytime. documented in this [facility]07-19-2024 Telephone encounter Note* Telephone Encounter - Luis Armando Handy DO - 12/05/2023 8:29 AM EDT Rx sent in. She is due for diabetic recheck anytime. [facility]03-19-2024 History of Present illness Narrative* Monalisa Bellamy, HEAVY LIFT RIGGER-DIRECT SALES REPRESENTATIVE - 08/05/2023 8:40 AM EDT Subjective Patient ID: Tamara Rolon is a 72 y.o. female. She has been monitoring her blood sugars at home and they have been 120 to 170 in the am She has been feeling good and has been active She never started the insulin but has taken the ozempic and the jardiance as directed As spring comes around she plans to get more active She has lost some weight with the ozempic and is tolerating that well along with the jardiance She is also doing well with her hip replacement She is currently not having any claudication symptoms No shortness of breath, no swelling in her feet She monitors blood pressure at home they have all been between 112-118 / 60-70 with pulse around 60 The following portions of the patient's history were reviewed and updated as appropriate: allergies, current medications, past family history, past medical history, past social history, past surgicalhistory, problem list, and medication reconciliation was completed including current medication andpost discharge medication. Review of Systems Constitutional: Negative. HENT: Negative. Eyes: Negative. Respiratory: Negative. Cardiovascular: Negative. Gastrointestinal: Negative. Endocrine: Negative. Genitourinary: Negative. Musculoskeletal: Negative. Skin: Negative. Allergic/Immunologic: Negative. Neurological: Negative. Hematological: Negative. Psychiatric/Behavioral: Negative. Objective Physical Exam Vitals and nursing note reviewed. Constitutional: Appearance: She is obese. HENT: Head: Normocephalic. Eyes: Conjunctiva/sclera: Conjunctivae normal. Neck: Vascular: No carotid bruit. Cardiovascular: Rate and Rhythm: Normal rate and regular rhythm. Pulses: Normal pulses. Heart sounds: Normal heart sounds. No murmur heard. Pulmonary: Effort: Pulmonary effort is normal. Breath sounds: Normal breath sounds. Musculoskeletal: Cervical back: Neck supple. Right lower leg: No edema. Left lower leg: No edema. Comments: Wearing compression hose to knee Lymphadenopathy: Cervical: No cervical adenopathy. Skin: General: Skin is warm and dry. Capillary Refill: Capillary refill takes less than 2 seconds. Neurological: Mental Status: She is alert and oriented to person, place, and time. Psychiatric: Mood and Affect: Mood normal. Behavior: Behavior normal. Thought Content: Thought content normal. Judgment: Judgment normal. Assessment/Plan Tamara was seen today for diabetes. Diagnoses and all orders for this visit: Type 2 diabetes mellitus with other diabetic kidney complication, without long- term current use of insulin ([facility] - Cancel: Hemoglobin A1c; Future - TSH; Future - Microalbumin - Albumin: Creatinine Urine Ratio; Future - Hemoglobin A1c; Future - semaglutide (OZEMPIC) 2 mg/dose (8 mg/3 mL) pen injector; Inject 2 mg under the skin once a week. Stage 3a chronic kidney disease ([facility] - Magnesium; Future - Uric acid; Future - CBC auto differential; Future - Phosphorus; Future - Parathyroid Hormone, intact; Future - Vitamin D 25 hydroxy; Future - Comprehensive metabolic panel; Future PVD (peripheral vascular disease) ([facility] Mixed hyperlipidemia - Comprehensive metabolic panel; Future - Lipid panel; Future Class 1 obesity due to excess calories with serious comorbidity and body mass index (BMI) of 31.0 to 31.9 in adult Awaiting lab work today to monitor her A1c, her microalbum and her kidney function and lipids Her blood pressure is stable Her blood sugars still seem too high in the morning but will see how her A1c looks she does not want to go on insulin We did discuss increasing activity and losing more weight to improve her A1c, since she has had herhips repaired she has been able to be much more active She is not currently had any symptoms of PVD and is not limited by this, she does wear compression hose daily Patient noted to have elevated BMI and the following intervention(s) were applied: encouragement toexercise. CALROS Bedolla 08/05/23 1203 documented in this encounterProCleveland Clinic Eucl[facility] Hospital SystemEvaluation note* Diagnosis Acute hip pain, left Acute hip pain, right H/O total hip arthroplasty, bilateral documented in this encounter [facility] HealthcareEvaluation note* Diagnosis Essential (primary) hypertension Unspecified essential hypertension documented in this encounter [facility] SystemEvaluation note* Diagnosis Type 2 diabetes mellitus with diabetic chronic kidney disease ([facility]) documented in this encounter [facility] SystemEvaluation note* Diagnosis Essential (primary) hypertension Unspecified essential hypertension documented in this encounter [facility] SystemEvaluation note* Diagnosis Essential (primary) hypertension Unspecified essential hypertension documented in this encounter [facility] SystemEvaluation note* Diagnosis Type 2 diabetes mellitus with other diabetic kidney complication, without long- term current use of insulin ([facility] Primary Stage 3a chronic kidney disease ([facility]) PVD (peripheral vascular disease) ([facility]) Unspecified peripheral vascular disease Mixed hyperlipidemia Class 1 obesity due to excess calories with serious comorbidity and body mass index (BMI) of 31.0 to 31.9 in adult documented in this encounter [facility] SystemEvaluation note* Diagnosis Type 2 diabetes mellitus with other diabetic kidney complication, without long- term current use of insulin ([facility])- Primary documented in this encounter [facility] SystemEvaluation note* Diagnosis Type 2 diabetes mellitus with other diabetic kidney complication, without long- term current use of insulin ([facility])- Primary documented in this encounter [facility] SystemEvaluation note* Diagnosis Type 2 diabetes mellitus with diabetic chronic kidney disease ([facility]) documented in this encounter [facility] SystemInstructionsNot on filedocumented in this encounter [facility] SystemInstructionsNot on filedocumented in this encounter [facility] SystemInstructionsNot on filedocumented in this encounter [facility] SystemInstructionsNot on filedocumented in this encounter [facility] SystemInstructionsNot on filedocumented in this encounter [facility] SystemInstructionsNot on filedocumented in this encounter [facility] SystemInstructionsNot on filedocumented in this encounter [facility] SystemInstructionsNot on filedocumented in this encounter [facility] Summary Purpose Family History No Family History Records FoundNo Family History Records FoundNo Family History Records FoundNo Family History Records FoundNo Family History Records Found Advance Directives Date ActivatedDate InactivatedComments01/13/2018 1:14 PM01/15/2018 9:10 PMCode StatusDate ActivatedDate InactivatedCommentsFull Code01/13/2018 1:14 PM01/15/2018 9:10 PM Additional Source Comments INFORMATION SOURCE (unrecogn ized section and content) DATE CREATED AUTHOR 11/27/2021 [facility] DATE CREATED AUTHOR AUTHOR'S ORGANIZ ATION 12/18/2021 [facility] DATE CREATED AUTHOR AUTHOR'S ORGANIZ ATION 08/06/2023 [facility] DATE CREATED AUTHOR AUTHOR'S ORGANIZ ATION 08/06/2023 [facility] DATE CREATED AUTHOR AUTHOR'S ORGANIZ ATION 03/08/2024 [facility] EPIC Care Teams (unrecognized sec tion and content) Team MemberRelationshipSpecialtyStart DateEnd Date Makenna Fried MD [address] [place] [phone] Referring PhysicianFannin Regional Hospital03/03/24Team MemberRelationshipSpecialtyStart DateEnd Date Makenna Fried MD [address] [place] [phone] Referring PhysicianFamily Qcujuiwi06/16/24Team MemberRelationshipSpecialtyStart DateEnd Date Luis Armando Handy DO [address] [place] [address] PCP - GeneralFamily Medicine12/16/17Team MemberRelationshipSpecialtyStart DateEnd Date Luis Armando aHndy DO [address], [place] [address] PCP - GeneralFamily Medicine12/16/17Team MemberRelationshipSpecialtyStart DateEnd Date Luis Armando Handy DO [address] [place] [address] PCP - GeneralFamily Medicine12/16/17Team MemberRelationshipSpecialtyStart DateEnd Date Luis Armando Handy DO [address] [place] [address] PCP - [facility]12/16/17Team MemberRelationshipSpecialtyStart DateEnd Date Luis Armando Handy DO [address] [place] [address] PCP - [facility]12/16/17Te MemberRelationshipSpecialtyStart DateEnd Date GiovaniLuis Armando wolf DO [address] [place] [address] PCP - [facility]12/16/17Te MemberRelationshipSpecialtyStart [place] [address] [place] [id number] Referring PhysicianFannin Regional Hospital03/03/24 Reason for Visit (unrecogniz ed section and content) ReasonCommentsPost-opReasonCommentsMed RefillReasonOnset DateCommentsMed Refill 4ReasonCommentsDiabetesReasonOnset DateCommentsMed Udibbl9301/08/2024 ReasonOnset DateCommentsMed [id number] DateCommentsFall 10/14/2024 FOR RECORDS PERTAINING TO PATIENTS WHO ARE OR HAVE BEEN ENROLLED IN A CHEMICAL DEPENDENCY/SUBSTANCEABUSE PROGRAM, SOME INFORMATION MAY BE OMITTED. This clinical summary was aggregated from multiple sources. Caution should be exercised in using it in the provision of clinical care. This summary normalizes information from multiple sources, and as a consequence, information in this document may materially change the coding, format and clinical context of patient data. In addition, data may be omitted in some cases. CLINICAL DECISIONS SHOULD BE BASED ON THE PRIMARY CLINICAL RECORDS. [facility] provides no warranty or guarantee of the accuracy or completeness of information in this document.
[2025-03-24 09:39] LABS: Alanine Aminotransferase 19 U/L (14-59); Albumin Globulin Ratio 0.9; Albumin Level 3.6 g/dL (3.4-5.0); Alkaline Phosphatase 76 U/L (46-116); Anion Gap 12.2; Aspartate Amino Transferase 16 U/L (15-37); Blood Urea Nitrogen 36.0 mg/dL (7.0-18.0); Calcium 9.3 mg/dL (8.5-10.1); Carbon Dioxide 29.0 mmol/L (21.0-32.0); Chloride 103 mmol/L (98-107); Estimated GFR (African America 51 (>=60 mL/min/1.73m^2); Estimated GFR (Non-African Ame 42 (>=60 mL/min/1.73m^2); Globulin 3.9 g/dL; Glucose 146 mg/dL (74-106); Potassium 4.2 mmol/L (3.5-5.1); Sodium 140 mmol/L (136-145); Total Protein 7.5 g/dL (6.4-8.2)
== END 2025-03-24 08:13 | disposition home or self-care (01) ==
LOC: LAB 08:19
PROVIDERS: PCP Nurse Practitioner Family; Visit Provider Nurse Practitioner Family
DX: E11.9 Type 2 diabetes mellitus without complications (principal)
CPT/HCPCS: 36415; 80053; 83036